=== PATIENT | female | born 1945 | race Caucasian/White ===

== ENCOUNTER → 2017-06-30 | Outpatient (CLI) | payer MEDICARE, OTHER ==
--- NOTE | 2017-07-01 09:57 | ECHOF ---
Referral Reason:I51.7 Cardiomegaly MEASUREMENTS -------- HEIGHT: 157.5 cm WEIGHT: 119.3 kg BP: 222/93 RVIDd: 3.4 cm (< 3.3) IVSd: 1.6 cm (0.6 - 1.1) LVIDd: 4.9 cm (3.9 - 5.3) LVPWd: 1.7 cm (0.6 - 1.1) IVSs: 1.9 cm LVIDs: 3.5 cm LVPWs: 2.1 cm LA Diam: 3.6 cm (2.7 - 3.8) LAESV Index (A-L): 29.64 ml/m Ao Diam: 3.2 cm (2.0 - 3.7) AV Cusp: 1.3 cm (1.5 - 2.6) MV EXCURSION: 14.382 mm (> 18.000) MV EF SLOPE: 41 mm/s (70 - 150) EPSS: 0.4 cm MV E Isauro: 1.01 m/s MV DecT: 337 ms MV A Isauro: 0.90 m/s MV E/A Ratio: 1.12 AV maxP.23 mmHg AV meanP.66 mmHg FINDINGS -------- Sinus rhythm. This was a technically adequate study. The left ventricular size is normal. There is moderate concentric left ventricular hypertrophy. O verall left ventricular systolic function is normal with, an EF between 55 - 60 %. The right ventricle is mildly enlarged. LA is midly dilated 29-33ml/m2. The right atrium is normal in size. There is moderate aortic valve sclerosis. There is mild aortic stenosis present. Peak/mean gradie nt across the Aortic Valve is 26.23mmHg / 14.66mmHg. Mild mitral annular calcification present. The tricuspid valve was not well visualized. The pulmonic valve was not well visualized. The aortic root size is normal. Normal inferior vena cava with normal inspiratory collapse consistent with estimated right atrial pre ssure of 5 mmHg. There is no pericardial effusion. CONCLUSIONS -------- 1. Sinus rhythm. 2. This was a technically adequate study. 3. The left ventricular size is normal. 4. There is moderate concentric left ventricular hypertrophy. 5. Overall left ventricular systolic function is normal with, an EF between 55 - 60 %. 6. The right ventricle is mildly enlarged. 7. LA is midly dilated 29-33ml/m2. 8. There is moderate aortic valve sclerosis. 9. There is mild aortic stenosis present. 10. Peak/mean gradient across the Aortic Valve is 26.23mmHg / 14.66mmHg. 11. Mild mitral annular calcification present. 12. The tricuspid valve was not well visualized. 13. The pulmonic valve was not well visualized. 14. The aortic root size is normal. 15. Normal inferior vena cava with normal inspiratory collapse consistent with estimated right atrial pressure of 5 mmHg. 16. There is no pericardial effusion. SET UP PERSON: Griselda Pena RDCS
== END | disposition home or self-care (01) ==
LOC: RADECHMAIN 08:00
PROVIDERS: ATTEND Family Medicine
DX: I35.0 Nonrheumatic aortic (valve) stenosis (principal); I05.8 Other rheumatic mitral valve diseases
CPT/HCPCS: 93306

== ENCOUNTER 2017-07-02 13:20 | Inpatient (IN) | payer MEDICARE, OTHER ==
[2017-07-02] MEDS ORDERED: ENALAPRILAT 1.25 MG/ML 1 ML VIAL IVP STA (13:46)
--- NOTE | 2017-07-02 13:46 | ED ---
General Adult HPI - General Chief complaint: Recheck/Abnormal Lab/Rx Stated complaint: Blood pressure Time Seen by Provider: 07/02/17 13:31 Source: patient, family, RN notes reviewed Mode of arrival: ambulatory Limitations: no limitations - History of Present Illness Initial comments: Patient is a pleasant 72-year-old female presenting to the emergency department with concerns regarding hypertension. Onset of symptoms was today. Patient has been having mild headache for the past week. Headache is frontal and mild however patient does normally not get headaches. No weakness. No confusion. No chest pain. Patient felt somewhat lightheaded this morning and checked her blood pressure at home. Blood pressure was 220 systolic. Patient is on atenolol for hypertension. Patient is unclear when her last blood pressure was checked however did see her doctor a couple of weeks ago. - Related Data Home Medications Medication Instructions Recorded Confirmed Atenolol [Tenormin] 25 mg PO BID 03/24/14 07/02/17 Atorvastatin Calcium [Lipitor] 40 mg PO HS 03/24/14 07/02/17 Levothyroxine Sodium [Levoxyl] 125 mcg PO DAILY 03/24/14 07/02/17 Multivitamins, Thera [Multivitamin 1 tab PO DAILY 03/24/14 07/02/17 (formulary)] Oxybutynin ER [Ditropan Xl] 10 mg PO HS 07/02/17 07/02/17 Allergies Allergy/AdvReac Type Severity Reaction Status Date / Time meperidine HCl [From Demerol] Allergy Nausea & Verified 07/02/17 14:38 Vomiting Review of Systems ROS Statement: Those systems with pertinent positive or pertinent negative responses have been documented in the HPI. ROS Other: All systems not noted in ROS Statement are negative. Constitutional: Denies: fever Eyes: Denies: eye pain ENT: Denies: ear pain Respiratory: Denies: cough Cardiovascular: Denies: chest pain Endocrine: Denies: fatigue Gastrointestinal: Denies: abdominal pain Genitourinary: Denies: dysuria Musculoskeletal: Denies: back pain Skin: Denies: rash Neurological: Reports: as per HPI. Denies: weakness, confusion Past Medical History Past Medical History: Hyperlipidemia, Hypertension, Thyroid Disorder Additional Past Medical History / Comment(s): varicose veins, History of Any Multi-Drug Resistant Organisms: None Reported Past Surgical History: Cholecystectomy, Hysterectomy, Joint Replacement, Tonsillectomy Additional Past Surgical History / Comment(s): rt knee replacement, TOTAL LEFT KNEE REPLACEMENT. Past Anesthesia/Blood Transfusion Reactions: No Reported Reaction Past Psychological History: No Psychological Hx Reported Smoking Status: Never smoker Past Alcohol Use History: None Reported Past Drug Use History: None Reported - Past Family History Mother Family Medical History: Cancer Sister(s) Family Medical History: Cancer General Exam Limitations: no limitations General appearance: alert, in no apparent distress Head exam: Present: atraumatic Eye exam: Present: normal appearance, PERRL ENT exam: Present: normal oropharynx Neck exam: Present: normal inspection Respiratory exam: Present: normal lung sounds bilaterally Cardiovascular Exam: Present: regular rate, normal rhythm GI/Abdominal exam: Present: soft. Absent: tenderness Extremities exam: Present: normal inspection Neurological exam: Present: alert, CN II-XII intact. Absent: motor sensory deficit Expanded Neurological exam: Present: protecting the airway Speech: Present: fluid speech Cranial nerves: EOM's Intact: Normal, Facial Sensation: Normal Sensory exam: Upper Extremity Light Touch: Normal, Lower Extremity Light Touch: Normal Motor strength exam: RUE: 5, LUE: 5, RLE: 5, LLE: 5 Eye Response: (4) open spontaneously Motor Response: (6) obeys commands Verbal Response: (5) oriented Psychiatric exam: Present: normal affect, normal mood Skin exam: Present: normal color Course Vital Signs 07/02/17 07/02/17 07/02/17 13:22 14:00 14:05 Temperature 97.4 F L Pulse Rate 53 L 49 L 45 L Respiratory 18 18 20 Rate Blood Pressure 248/112 212/95 209/91 O2 Sat by Pulse 94 L 98 96 Oximetry 07/02/17 15:37 Temperature Pulse Rate 41 L Respiratory 18 Rate Blood Pressure 179/84 O2 Sat by Pulse 98 Oximetry EKG Findings - EKG Comments: EKG Findings:: Sinus bradycardia 46. First-degree AV block with a TX of 2:30. QRS 158. QT 526. QTc 460. Normal axis. Right bundle branch block. No acute ST change. Medical Decision Making - Medical Decision Making Patient reevaluated and is resting comfortably in bed. Blood pressure has improved however patient has been bradycardic. Heart rate is currently in the low 40s. Case was discussed in detail with Dr. Jesus who did come evaluate the patient. He will admit for Dr. flores, covering for Dr. rico. He requests no consult at this time. - Lab Data Result diagrams: 07/02/17 13:49 07/02/17 13:49 Lab Results 07/02/17 07/02/17 07/02/17 Range/Units 13:49 13:49 13:49 WBC 7.1 (3.8-10.6) k/uL RBC 4.90 (3.80-5.40) m/uL Hgb 13.9 (11.4-16.0) gm/dL Hct 42.5 (34.0-46.0) % MCV 86.7 (80.0-100.0) fL MCH 28.4 (25.0-35.0) pg MCHC 32.8 (31.0-37.0) g/dL RDW 13.9 (11.5-15.5) % Plt Count 227 (150-450) k/uL Neutrophils % 63 % Lymphocytes % 26 % Monocytes % 6 % Eosinophils % 3 % Basophils % 0 % Neutrophils # 4.4 (1.3-7.7) k/uL Lymphocytes # 1.9 (1.0-4.8) k/uL Monocytes # 0.4 (0-1.0) k/uL Eosinophils # 0.2 (0-0.7) k/uL Basophils # 0.0 (0-0.2) k/uL PT (9.0-12.0) sec INR (<1.2) APTT (22.0-30.0) sec Sodium 142 (137-145) mmol/L Potassium 4.3 (3.5-5.1) mmol/L Chloride 103 (98-107) mmol/L Carbon Dioxide 31 H (22-30) mmol/L Anion Gap 8 mmol/L BUN 16 (7-17) mg/dL Creatinine 0.59 (0.52-1.04) mg/dL Est GFR (CKD-EPI)AfAm >90 (>60 ml/min/1.73 sqM) Est GFR (CKD-EPI)NonAf >90 (>60 ml/min/1.73 sqM) Glucose 113 H (74-99) mg/dL Calcium 9.6 (8.4-10.2) mg/dL Total Bilirubin 0.6 (0.2-1.3) mg/dL AST 50 H (14-36) U/L ALT 67 H (9-52) U/L Alkaline Phosphatase 91 (38-126) U/L Total Creatine Kinase 101 (30-135) U/L CK-MB (CK-2) 1.1 (0.0-2.4) ng/mL CK-MB (CK-2) Rel Index 1.1 Troponin I <0.012 (0.000-0.034) ng/mL Total Protein 7.8 (6.3-8.2) g/dL Albumin 4.0 (3.5-5.0) g/dL 07/02/17 Range/Units 13:49 WBC (3.8-10.6) k/uL RBC (3.80-5.40) m/uL Hgb (11.4-16.0) gm/dL Hct (34.0-46.0) % MCV (80.0-100.0) fL MCH (25.0-35.0) pg MCHC (31.0-37.0) g/dL RDW (11.5-15.5) % Plt Count (150-450) k/uL Neutrophils % % Lymphocytes % % Monocytes % % Eosinophils % % Basophils % % Neutrophils # (1.3-7.7) k/uL Lymphocytes # (1.0-4.8) k/uL Monocytes # (0-1.0) k/uL Eosinophils # (0-0.7) k/uL Basophils # (0-0.2) k/uL PT 10.3 (9.0-12.0) sec INR 1.1 (<1.2) APTT 24.1 (22.0-30.0) sec Sodium (137-145) mmol/L Potassium (3.5-5.1) mmol/L Chloride (98-107) mmol/L Carbon Dioxide (22-30) mmol/L Anion Gap mmol/L BUN (7-17) mg/dL Creatinine (0.52-1.04) mg/dL Est GFR (CKD-EPI)AfAm (>60 ml/min/1.73 sqM) Est GFR (CKD-EPI)NonAf (>60 ml/min/1.73 sqM) Glucose (74-99) mg/dL Calcium (8.4-10.2) mg/dL Total Bilirubin (0.2-1.3) mg/dL AST (14-36) U/L ALT (9-52) U/L Alkaline Phosphatase (38-126) U/L Total Creatine Kinase (30-135) U/L CK-MB (CK-2) (0.0-2.4) ng/mL CK-MB (CK-2) Rel Index Troponin I (0.000-0.034) ng/mL Total Protein (6.3-8.2) g/dL Albumin (3.5-5.0) g/dL - Radiology Data Radiology results: report reviewed (Computed tomography scan of the brain shows no acute intercranial process. Age-related atrophy.), image reviewed (Two-view chest x-ray shows cardiomegaly and mild pulmonary vascular congestion.) Disposition Clinical Impression: Hypertension, Bradycardia Disposition: ADMITTED IP TO THIS HOSP Referrals: Lalito Boswell MD [Primary Care Provider] - 1-2 days Decision Time: 16:31
[2017-07-02 14:01] LABS: Basophils % (A) 0 %; Eosinophils # (A) 0.2 k/uL (0-0.7); Eosinophils % (A) 3 %; HCT 42.5 % (34.0-46.0); HGB 13.9 gm/dL (11.4-16.0); Lymphocytes # (A) 1.9 k/uL (1.0-4.8); Lymphocytes % (A) 26 %; MCH 28.4 pg (25.0-35.0); MCHC 32.8 g/dL (31.0-37.0); MCV 86.7 fL (80.0-100.0); Mean Platelet Volume 6.9; Monocytes # (A) 0.4 k/uL (0-1.0); Monocytes % (A) 6 %; Neutrophils # (A) 4.4 k/uL (1.3-7.7); Neutrophils % (A) 63 %; Platelet Count 227 k/uL (150-450); RDW 13.9 % (11.5-15.5); WBC 7.1 k/uL (3.8-10.6)
[2017-07-02 14:09] LABS: INR 1.1 (<1.2); Partial Thromboplastin Time 24.1 sec (22.0-30.0); Prothrombin Time 10.3 sec (9.0-12.0)
[2017-07-02 14:10] LABS: ALT 67 U/L (9-52); AST 50 U/L (14-36); Alkaline Phosphatase 91 U/L (38-126); Anion Gap 8 mmol/L; Blood Urea Nitrogen 16 mg/dL (7-17); Calcium 9.6 mg/dL (8.4-10.2); Carbon Dioxide 31 mmol/L (22-30); Chloride 103 mmol/L (98-107); Glucose 113 mg/dL (74-99); Potassium 4.3 mmol/L (3.5-5.1); Sodium 142 mmol/L (137-145); Total Bilirubin 0.6 mg/dL (0.2-1.3); Total Protein 7.8 g/dL (6.3-8.2)
[2017-07-02 14:23] LABS: Creatine Kinase 101 U/L (30-135)
--- NOTE | 2017-07-02 14:33 | CT ---
EXAMINATION TYPE: CT brain wo con DATE OF EXAM: 07/02/2017 COMPARISON: NONE HISTORY: Headache and high blood pressure CT DLP: 945.5 mGycm Automated exposure control for dose reduction was used. TECHNIQUE: CT scan of the head is performed without contrast. FINDINGS: There is no acute intracranial hemorrhage or midline shift identified. There is diffuse v entricular and sulcal prominence consistent with diffuse age-related cerebral atrophy. There is ecta bernardo of the basilar artery noted. There are few areas of low-attenuation in the periventricular white matter consistent with chronic small vessel ischemic change. The globes are intact and the visualize d sinuses are clear other than a scant amount of fluid within the sphenoid air cells and probable sma ll subcentimeter right frontal osteoma. IMPRESSION: 1. No acute intracranial process. 2. 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
[2017-07-02 14:36] LABS: Creatine Kinase MB 1.1 ng/mL (0.0-2.4); Troponin I <0.012 ng/mL (0.000-0.034)
--- NOTE | 2017-07-02 14:48 | XR ---
EXAMINATION TYPE: XR chest 2V DATE OF EXAM: 07/02/2017 COMPARISON: NONE HISTORY: Weakness and hypertension TECHNIQUE: Frontal and lateral views of the chest are obtained. FINDINGS: Copious soft tissues obscure the lateral lungs. Overlying lines also partially obscured mid line mediastinum. Heart is enlarged. There is engorgement of the vasculature on the lateral image wit h no focal consolidation. Mild multilevel degenerative changes of the thoracic spine are seen. No siz able pleural effusion or pneumothorax. The osseous structures are intact. IMPRESSION: Cardiomegaly and mild pulmonary vascular congestion that may be on the basis of decompensated congest june heart failure.
[2017-07-02] MEDS ORDERED: amLODIPine 5 MG TAB PO STA (15:50)
--- NOTE | 2017-07-02 15:59 | P.HPIM ---
History of Present Illness 72-year-old pleasant female came in with complaints of elevated blood pressures checked her blood pressure which was elevated patient is comparing of shortness of breath denied any orthopnea PND. Patient denied any cough or shortness of breath is exertional in nature. Patient is found to have some pulmonary decompressive surgery changes that his pulmonary edema on the chest x-ray I'll obtain a BNP, echocardiogram. Patient does have pedal edema as well. Patient was given couple doses of Vasotec after which her blood pressure has come down from 250/120 to 180 systolic. Patient will be admitted under observation has as her blood pressure is already come down patient will need diuretic therapy since her the chest x-ray showing pulmonary edema and patient does have bilateral pedal edema we will give her a dose of Lasix patient will be started on hydrochlorothiazide from tomorrow patient will be given a dose of amlodipine today and will be started on regular dose of amlodipine from tomorrow. Patient was comparing of some headache. Denied any bloody vision denied any chest pain denied any abdominal pain. Patient denied any fever chills nausea vomiting. Patient takes atenolol patient has a sinus bradycardia at this time because of which atenolol will be discontinued. Review of Systems REVIEW OF SYSTEMS: CONSTITUTIONAL: No fever, no malaise, no fatigue. HEENT: No recent visual problems or hearing problems. Denied any sore throat. CARDIOVASCULAR: No chest pain, orthopnea, PND, no palpitations, no syncope. PULMONARY: no cough, no hemoptysis. GASTROINTESTINAL: No diarrhea, no nausea, no vomiting, no abdominal pain. Normoactive bowel sounds. NEUROLOGICAL: , no weakness, no numbness. HEMATOLOGICAL: Denies any bleeding or petechiae. GENITOURINARY: Denies any burning micturition, frequency, or urgency. MUSCULOSKELETAL/RHEUMATOLOGICAL: Denies any joint pain, swelling, or any muscle pain. ENDOCRINE: Denies any polyuria or polydipsia. The rest of the 14-point review of systems is negative. Past Medical History Past Medical History: Hyperlipidemia, Hypertension, Thyroid Disorder Additional Past Medical History / Comment(s): varicose veins, History of Any Multi-Drug Resistant Organisms: None Reported Past Surgical History: Cholecystectomy, Hysterectomy, Joint Replacement, Tonsillectomy Additional Past Surgical History / Comment(s): rt knee replacement, TOTAL LEFT KNEE REPLACEMENT. Past Anesthesia/Blood Transfusion Reactions: No Reported Reaction Past Psychological History: No Psychological Hx Reported Smoking Status: Never smoker Past Alcohol Use History: None Reported Past Drug Use History: None Reported - Past Family History Mother Family Medical History: Cancer Sister(s) Family Medical History: Cancer Medications and Allergies Home Medications Medication Instructions Recorded Confirmed Type Atenolol [Tenormin] 25 mg PO BID 03/24/14 07/02/17 History Atorvastatin Calcium [Lipitor] 40 mg PO HS 03/24/14 07/02/17 History Levothyroxine Sodium [Levoxyl] 125 mcg PO DAILY 03/24/14 07/02/17 History Multivitamins, Thera [Multivitamin 1 tab PO DAILY 03/24/14 07/02/17 History (formulary)] Oxybutynin ER [Ditropan Xl] 10 mg PO HS 07/02/17 07/02/17 History Allergies Allergy/AdvReac Type Severity Reaction Status Date / Time meperidine HCl [From Demerol] Allergy Nausea & Verified 07/02/17 14:38 Vomiting Physical Exam Vitals: Vital Signs Temp Pulse Resp BP Pulse Ox 07/02/17 15:37 41 L 18 179/84 98 07/02/17 14:05 45 L 20 209/91 96 07/02/17 14:00 49 L 18 212/95 98 07/02/17 13:22 97.4 F L 53 L 18 248/112 94 L Intake and Output 07/02/17 07/02/17 07/02/17 06:59 14:59 22:59 Other: Weight 111.584 kg PHYSICAL EXAMINATION: GENERAL: The patient is alert and oriented x3, not in any acute distress. Well developed, well nourished. Obese HEENT: Pupils are round and equally reacting to light. EOMI. No scleral icterus. No conjunctival pallor. Normocephalic, atraumatic. No pharyngeal erythema. No thyromegaly. CARDIOVASCULAR: S1 and S2 present. No murmurs, rubs, or gallops. No JVD bradycardic PULMONARY: Chest is clear to auscultation, no wheezing or crackles. ABDOMEN: Soft, nontender, nondistended, normoactive bowel sounds. No palpable organomegaly. MUSCULOSKELETAL: No joint swelling or deformity. EXTREMITIES: No cyanosis, clubbing, she does have bilateral pedal edema NEUROLOGICAL: Gross neurological examination did not reveal any focal deficits. SKIN: No rashes. Results CBC & Chem 7: 07/02/17 13:49 07/02/17 13:49 Labs: Abnormal Lab Results - Last 24 Hours (Table) 07/02/17 Range/Units 13:49 Carbon Dioxide 31 H (22-30) mmol/L Glucose 113 H (74-99) mg/dL AST 50 H (14-36) U/L ALT 67 H (9-52) U/L Assessment and Plan Plan: -Accelerated hypertension, possibility of hypertensive emergency on arrival to ER with shortness of breath and flash pulmonary edema: Improved blood pressure now patient will be admitted observation will not require any IV antibiotics as at this time further management of her hypertension as mentioned above. -Pulmonary edema along with bilateral pedal edema may be related to flash pulmonary edema from hypertensive urgency but a lot congestive heart failure systolic heart diastolic dysfunction not obtain an echocardiogram will be given a dose of Lasix, BNP will be obtained. -Obesity: Counseling was provided dietary counseling for her high blood pressure was provided as well -Sinus bradycardia secondary to atenolol which was discontinued -Hyperlipidemia -Hyper thyroidism will obtain TSH level as well
[2017-07-02] MEDS ORDERED: FUROSEMIDE 10 MG/ML 2 ML VIAL IV ONE (16:00)
[2017-07-02] MEDS ORDERED: NALOXONE 0.4 MG/ML 1 ML VIAL IV PRN (16:32)
[2017-07-02 16:51] LABS: Appearance,Urine Clear (Clear); Bilirubin,Urine Negative (Negative); Blood,Urine Negative (Negative); Color,Urine Light Yellow; Glucose,Urine (UA) Negative (Negative); Ketones,Urine Negative (Negative); Leukocyte Esterase,Urine Negative (Negative); Nitrite,Urine Negative (Negative); Protein,Urine Negative (Negative); Specific Gravity,Urine 1.007 (1.001-1.035); Urobilinogen,Urine <2.0 mg/dL (<2.0)
[2017-07-02 21:20] VITALS: RESP 18; BMI 47.2
[2017-07-02] MEDS: ATORVASTATIN 40 MG TAB PO SCH (23:29)
[2017-07-02] MEDS: OXYBUTYNIN 10 MG TAB.ER.24 PO SCH (23:29)
[2017-07-03] MEDS: LEVOTHYROXINE 125 MCG TAB PO SCH (05:33)
[2017-07-03 06:47] LABS: Anion Gap 7 mmol/L; Blood Urea Nitrogen 16 mg/dL (7-17); Calcium 9.3 mg/dL (8.4-10.2); Carbon Dioxide 32 mmol/L (22-30); Chloride 102 mmol/L (98-107); Glucose 97 mg/dL (74-99); Potassium 3.8 mmol/L (3.5-5.1); Sodium 141 mmol/L (137-145)
[2017-07-03] MEDS: amLODIPine 5 MG TAB PO SCH (08:13)
[2017-07-03] MEDS: FUROSEMIDE 10 MG/ML 4 ML VIAL IV SCH ×2 (13:03→21:26)
--- NOTE | 2017-07-03 13:39 | P.PN ---
Subjective 72-year-old female patient was admitted secondary to flash pulmonary edema from hypertensive emergency blood pressures well controlled. Patient will be started on 40 IV twice a day of Lasix patient had a recent echocardiogram which showed normal ejection fraction but did have concentrated hypertrophy. Patient shortness of breath improved but still bit short of breath possibly of discharge tomorrow, repeat x-ray chest tomorrow. Constitutional: Denied any fatigue denied any fever. Cardio vascular: denied any chest pain, palpitations Gastrointestinal denied any nausea vomiting Pulmonary: Significantly improved shortness of breath and pedal edema Neurologic denied any new focal deficits Objective - Vital Signs Vital signs: Vital Signs Temp 99.1 F 07/03/17 12:00 Pulse 54 L 07/03/17 12:00 Resp 18 07/03/17 12:00 BP 149/77 07/03/17 12:00 Pulse Ox 93 L 07/03/17 12:00 Intake & Output 07/02/17 07/03/17 07/03/17 18:59 06:59 18:59 Intake Total 200 240 Balance 200 240 Weight 111.584 kg 116 kg Intake: Oral 200 240 Other: Voiding Method Toilet Toilet # Voids 1 - Exam PHYSICAL EXAMINATION: GENERAL: The patient is alert and oriented x3, not in any acute distress. Well developed, well nourished. Obese HEENT: Pupils are round and equally reacting to light. EOMI. No scleral icterus. No conjunctival pallor. Normocephalic, atraumatic. No pharyngeal erythema. No thyromegaly. CARDIOVASCULAR: S1 and S2 present. No murmurs, rubs, or gallops. No JVD bradycardic PULMONARY: Chest is clear to auscultation, no wheezing or crackles. ABDOMEN: Soft, nontender, nondistended, normoactive bowel sounds. No palpable organomegaly. MUSCULOSKELETAL: No joint swelling or deformity. EXTREMITIES: No cyanosis, clubbing, she does have bilateral pedal edema improved compared to yesterday NEUROLOGICAL: Gross neurological examination did not reveal any focal deficits. SKIN: No rashes. - Labs CBC & Chem 7: 07/02/17 13:49 07/03/17 06:02 Labs: Abnormal Lab Results - Last 24 Hours (Table) 07/02/17 07/03/17 Range/Units 13:49 06:02 Carbon Dioxide 31 H 32 H (22-30) mmol/L Glucose 113 H (74-99) mg/dL AST 50 H (14-36) U/L ALT 67 H (9-52) U/L Assessment and Plan Plan: -Accelerated hypertension, possibility of hypertensive emergency on arrival to ER with shortness of breath and flash pulmonary edema: Improved blood pressure now patient's is pretty status improved but still which are of breath will continue on IV Lasix today and possibility of discharge tomorrow patient had normal ejection fraction but concentrated hypertrophy on the echocardiogram that was done on 16 of this month -Pulmonary edema along with bilateral pedal edema may be related to flash pulmonary edema from hypertensive urgency. -Obesity: Counseling was provided dietary counseling for her high blood pressure was provided as well -Sinus bradycardia secondary to atenolol which was discontinued, bradycardia resolved -Hyperlipidemia -Hypothyroidism: TSH within normal limits
--- NOTE | 2017-07-03 17:01 | US ---
EXAMINATION TYPE: US venous doppler duplex LE LT DATE OF EXAM: 07/03/2017 2:55 PM COMPARISON: 04/14/2014 CLINICAL HISTORY: left leg/calf pain. Difficult/limited exam due to patient body habitus SIDE PERFORMED: Left TECHNIQUE: The lower extremity deep venous system is examined utilizing real time linear array sonog fawad with graded compression, doppler sonography and color-flow sonography. VESSELS IMAGED: External Iliac Vein (EIV) Common Femoral Vein Deep Femoral Vein Greater Saphenous Vein * Femoral Vein Popliteal Vein Small Saphenous Vein * Proximal Calf Veins (* superficial vessels) FINDINGS: Grayscale, color doppler, spectral doppler imaging performed of the deep veins of the lower extremities. There is normal flow, compressibility, vascular waveforms. IMPRESSION: LEFT LOWER EXTREMITY: NEGATIVE FOR DEEP VENOUS THROMBOSIS.
[2017-07-03] MEDS: ATORVASTATIN 40 MG TAB PO SCH (19:57)
[2017-07-03] MEDS: OXYBUTYNIN 10 MG TAB.ER.24 PO SCH (19:57)
[2017-07-04 05:56] LABS: Basophils % (A) 1 %; Eosinophils # (A) 0.2 k/uL (0-0.7); Eosinophils % (A) 3 %; HCT 43.2 % (34.0-46.0); HGB 14.7 gm/dL (11.4-16.0); Lymphocytes # (A) 2.6 k/uL (1.0-4.8); Lymphocytes % (A) 36 %; MCH 29.2 pg (25.0-35.0); MCHC 33.9 g/dL (31.0-37.0); Mean Platelet Volume 6.7; Monocytes # (A) 0.5 k/uL (0-1.0); Monocytes % (A) 7 %; Neutrophils # (A) 3.8 k/uL (1.3-7.7); Neutrophils % (A) 52 %; Platelet Count 200 k/uL (150-450); RBC 5.03 m/uL (3.80-5.40); RDW 14.1 % (11.5-15.5); WBC 7.3 k/uL (3.8-10.6)
[2017-07-04] MEDS: LEVOTHYROXINE 125 MCG TAB PO SCH (06:06)
[2017-07-04 06:10] LABS: Calcium 9.3 mg/dL (8.4-10.2); Potassium 3.9 mmol/L (3.5-5.1)
--- NOTE | 2017-07-04 08:15 | XR ---
EXAMINATION TYPE: XR chest 1V portable DATE OF EXAM: 07/04/2017 CLINICAL HISTORY: Difficulty breathing and pulmonary edema progress study. TECHNIQUE: Single AP portable frontal view of the chest is obtained. COMPARISON: Chest x-ray from 2 days earlier. FINDINGS: Exam is suboptimal due to patient's large body habitus and portable technique. There is car diomegaly redemonstrated. There is perhaps stable mild central vascular congestion. No new focal airs pace opacity, pleural effusion, or pneumothorax is seen. High riding humeral heads bilaterally sugges t chronic rotator cuff tears. IMPRESSION: Overall stable findings, cardiomegaly with perhaps mild central vascular congestion. Co rrelate clinically. No new focal infiltrate is present.
[2017-07-04] MEDS: FUROSEMIDE 10 MG/ML 4 ML VIAL IV SCH (09:26)
[2017-07-04] MEDS: amLODIPine 5 MG TAB PO SCH (09:26)
--- NOTE | 2017-07-04 11:43 | CDI ---
Last Revision, March 2017 Documentation Clarification Form Date: July 04, 2017 From: Chela Akins RN Admit Date: 07/02/2017 4:32:00 PM Patient Name: Arabella Beard Visit Number: [id number] ATTENTION: The Clinical Documentation Specialists (CDI) and [facility] Coding Staff appreciate your assistance in clarifying documentation. Please respond to the clarification below the line at the bottom and electronically sign. The CDI & [facility] Coding staff will review the response and follow-up if needed. Please note: Queries are made part of the Legal Health Record. If you have any questions, please contact the author of this message via ITS. Dr. Vinod Montesinos, CHF systolic/diastolic dysfunction is charted in the H&P: History/Risk Factors:. hyperlipidemia, htn, thyroid disorder Clinical Indicators: BNP: 279 Chest X Ray: decompensated chf Treatment: IV Lasix Monitor labs Healthy Heart Diet In your professional opinion, can you please clarify the acuity of CHF if known? Acute Chronic Acute on Chronic Heart Failure Unable to Determine Other, please specify Please continue to document in your progress notes under the line below and/or in the discharge summary in order to capture severity of illness and risk of mortality. Include clinical findings that support your diagnosis. Please refer to my discharge summary MTDD
--- NOTE | 2017-07-04 13:14 | P.DS ---
Providers Date of admission: 07/02/17 16:32 Attending physician: Vinod Montesinos Primary care physician: Lalito Boswell [facility] Course: 72-year-old female patient was admitted secondary to flash pulmonary edema from hypertensive emergency blood pressures well controlled. Patient will be started on 40 IV twice a day of Lasix patient had a recent echocardiogram which showed normal ejection fraction but did have concentrated hypertrophy. Patient shortness of breath improved but still bit short of breath possibly of discharge tomorrow, repeat x-ray chest tomorrow. 07/04/2017 Patient respiratory status improved patient's shortness of breath completely resolved patient may have chronic diastolic dysfunction with acute exacerbation along with the hypertensive emergency. Patient will be discharged on 40 mg of oral Lasix along with potassium chloride 10 meq and amlodipine. Repeat basic metabolic profile in 3 days Constitutional: Denied any fatigue denied any fever. Cardio vascular: denied any chest pain, palpitations Gastrointestinal denied any nausea vomiting Pulmonary: Denied any shortness of breath cough Neurologic denied any new focal deficits -Accelerated hypertension, possibility of hypertensive emergency on arrival to ER with shortness of breath and flash pulmonary edema: Improved blood pressure -Pulmonary edema along with bilateral pedal edema may be related to flash pulmonary edema from hypertensive urgency. I cannot completely rule out a diastolic dysfunction chronic with acute exacerbation. -Obesity: Counseling was provided dietary counseling for her high blood pressure was provided as well -Sinus bradycardia secondary to atenolol which was discontinued, bradycardia resolved -Hyperlipidemia -Hypothyroidism: TSH within normal limits Plan - Discharge Summary Discharge Rx Participant: Yes New Discharge Prescriptions: New amLODIPine [Norvasc] 5 mg PO DAILY #30 tab Furosemide [Lasix] 40 mg PO DAILY #30 tablet Continue Levothyroxine Sodium [Levoxyl] 125 mcg PO DAILY Atorvastatin Calcium [Lipitor] 40 mg PO HS Multivitamins, Thera [Multivitamin (formulary)] 1 tab PO DAILY Oxybutynin ER [Ditropan Xl] 10 mg PO HS Discontinued Atenolol [Tenormin] 25 mg PO BID Discharge Medication List Atorvastatin Calcium [Lipitor] 40 mg PO HS 03/24/14 [History] Levothyroxine Sodium [Levoxyl] 125 mcg PO DAILY 03/24/14 [History] Multivitamins, Thera [Multivitamin (formulary)] 1 tab PO DAILY 03/24/14 [History ] Oxybutynin ER [Ditropan Xl] 10 mg PO HS 07/02/17 [History] Furosemide [Lasix] 40 mg PO DAILY #30 tablet 07/04/17 [Rx] amLODIPine [Norvasc] 5 mg PO DAILY #30 tab 07/04/17 [Rx] Follow up Appointment(s)/Referral(s): Lalito Boswell MD [Primary Care Provider] - 3 Days ( with PA) Ambulatory/Diagnostic Orders: Basic Metabolic Panel [LAB.AMB] Location: Determined By Patient Patient Instructions/Handouts: Bradycardia (DC) Discharge Disposition: HOME SELF-CARE
[2017-07-04 13:35] VITALS: BP 132/76; PULSE 65; TEMP 98.4
== END 2017-07-04 14:00 | disposition home or self-care (01) | DRG 304 ==
LOC: EC 13:20 → 6SEL 16:32
PROVIDERS: ADMIT Hospitalist; ATTEND Hospitalist
DX: I16.1 Hypertensive emergency (principal); I50.33 Acute on chronic diastolic (congestive) heart failure; Z68.42 Body mass index [BMI] 45.0-49.9, adult; E66.9 Obesity, unspecified; E78.5 Hyperlipidemia, unspecified; I11.0 Hypertensive heart disease with heart failure; Z90.710 Acquired absence of both cervix and uterus; Z96.653 Presence of artificial knee joint, bilateral; Z71.3 Dietary counseling and surveillance; R00.1 Bradycardia, unspecified; T44.7X5A Adverse effect of beta-adrenoreceptor antagonists, initial encounter; Z79.890 Hormone replacement therapy; Z79.899 Other long term (current) drug therapy; E03.9 Hypothyroidism, unspecified
CPT/HCPCS: 36415; 70450; 71045; 71046; 80048; 80053; 81003; 82550; 82553; 83880; 84443; 84484; 85025; 85610; 85730; 93005; 93306; 96374; 96375; 99285

== ENCOUNTER → 2017-12-13 | Outpatient (CLI) | payer MEDICARE, OTHER ==
--- NOTE | 2017-12-14 08:54 | MM ---
Reason for exam: screening (asymptomatic). Last mammogram was performed 7 years and 10 months ago. Physical Findings: A clinical breast exam by your physician is recommended on an annual basis and results should be correlated with mammographic findings. MG 3D Screening Mammo W/Cad Bilateral CC and MLO view(s) were taken. Prior study comparison: February 09, 2010, mammogram, performed at [facility]. February 06, 2008, mammogram, performed at [facility]. There are scattered fibroglandular densities. Stable benign calcifications. There is no discrete abnormality. No significant changes when compared with prior studies. ASSESSMENT: Benign, BI-RAD 2 RECOMMENDATION: Routine screening mammogram of both breasts in 1 year.
== END | disposition home or self-care (01) ==
LOC: RADMAMWWP 11:15
PROVIDERS: ATTEND Family Medicine
DX: Z12.31 Encounter for screening mammogram for malignant neoplasm of breast (principal)
CPT/HCPCS: 77063; 77067

== ENCOUNTER → 2018-06-13 | Outpatient (CLI) | payer MEDICARE, OTHER ==
[2018-06-13 11:24] LABS: HCT 43.2 % (34.0-46.0); HGB 13.9 gm/dL (11.4-16.0); MCH 28.5 pg (25.0-35.0); MCHC 32.3 g/dL (31.0-37.0); MCV 88.4 fL (80.0-100.0); Mean Platelet Volume 6.2; Platelet Count 231 k/uL (150-450); RBC 4.89 m/uL (3.80-5.40); RDW 13.5 % (11.5-15.5); WBC 7.1 k/uL (3.8-10.6)
[2018-06-13 11:31] LABS: Anion Gap 7 mmol/L; Blood Urea Nitrogen 17 mg/dL (7-17); Carbon Dioxide 30 mmol/L (22-30); Chloride 107 mmol/L (98-107); Glucose 93 mg/dL (74-99); Potassium 4.2 mmol/L (3.5-5.1); Sodium 144 mmol/L (137-145)
== END ==
LOC: LABPAT 10:04
PROVIDERS: ATTEND Internal Medicine Cardiovascular Disease
DX: Z01.812 Encounter for preprocedural laboratory examination (principal); I35.0 Nonrheumatic aortic (valve) stenosis; E78.00 Pure hypercholesterolemia, unspecified
CPT/HCPCS: 36415; 80051; 82565; 82947; 84520; 85027

== ENCOUNTER 2018-06-18 07:32 | Day surgery (SDC) | payer MEDICARE, OTHER ==
[2018-06-13 14:19] VITALS: BMI 47.7
[~2018-06-18 07:32] MED LIST: ALPRAZolam 0.25 MG TAB PO PRN; ALPRAZolam 0.5 MG TAB PO PRN; ASPIRIN 325 MG TAB PO STA; ATORVASTATIN 80 MG TAB PO STA; NITROGLYCERIN SL TABS 0.4 MG TAB SUBLINGUAL PRN; SODIUM CHLORIDE 0.9% 1,000 ML in EMPTY BAG 1 BAG IV ONE
[2018-06-18 08:07] VITALS: TEMP 97.8
[2018-06-18] MEDS ORDERED: LIDOCAINE 1% INJ 10MG/ML (20 ML MDV) ONE (08:24)
[2018-06-18] MEDS ORDERED: fentaNYL (PF) 50 MCG/ML 2 ML AMP ONE (08:51)
[2018-06-18] MEDS ORDERED: MIDAZOLAM 2 MG/2 ML VIAL IVP ONE (08:55)
[2018-06-18] MEDS ORDERED: fentaNYL (PF) 50 MCG/ML 2 ML AMP IVP ONE (08:55)
[2018-06-18] MEDS ORDERED: LIDOCAINE 1% INJ 10MG/ML (20 ML MDV) SQ ONE (09:00)
[2018-06-18] MEDS ORDERED: IOPAMIDOL-370 150ML BTL INJ ONE ×2 (09:25)
[2018-06-18] MEDS ORDERED: RX INFO: IV CONTRAST WAS GIVEN 1 EACH MISC MISCELLANE PRN (09:35)
[2018-06-18] MEDS ORDERED: HYDROcodone/APAP 5-325MG 1 EACH TAB PO PRN (09:35)
--- NOTE | 2018-06-18 09:42 | P.CARDCATH ---
Date of Procedure: 06/18/18 Preoperative Diagnosis: Positive stress test and mild aortic stenosis. Hypertension, hyperlipidemia and family history of ischemic heart disease Postoperative Diagnosis: Normal coronary arteries and mild aortic stenosis Description of Procedure: HISTORY: This is a 73-year-old female with history of hypertension hyperlipidemia and mild aortic stenosis and also family history of ischemic heart disease who had a stress test which was suggestive of possible ischemia in the anteroapical and lateral wall. Patient is advised to have a cardiac catheterization for definitive diagnosis. CONSENT:I have discussed the risks, benefits and alternative therapies for the above-mentioned procedure and for both sedation/analgesia as well as necessary blood product administration, if indicated, as they pertain to this patient. The patient has indicated understanding and acceptance of the risks and procedures discussed. PROCEDURE: Patient was brought to the lab in a fasting state. Patient was given some IV sedation. The right groin is infiltrated with lidocaine and right femoral artery was entered using Seldinger technique. A 6-Welsh catheter was left in place and selective coronary arteriography was performed. Marcus catheters were used for right and left coronary angiogram. Multipurpose catheter with Glidewire was used to cross the aortic valve. Patient tolerated the procedure well. Femoral angiogram was performed and manual compression was applied for hemostasis. No immediate complications were noted and patient was transferred to [facility] in a stable condition Conscious Sedation: Versed 1mg Fentanyl 50 g Duration 31minutes HEMODYNAMICS: The aortic pressure was 140/70. Left ventricle end-diastolic pressure was about 12. The gradient across the aortic valve is about 10-15. SELECTIVE CORONARY ARTERIOGRAPHY: LEFT MAIN: Very short and divides into left anterior descending and circumflex coronary artery immediately. There appears to be almost separate origin of the LAD and circumflex THE LEFT ANTERIOR DESCENDING CORONARY ARTERY:. This is a good caliber vessel giving rise to 2 diagonal and several septal branches. The LAD and branches are free of any occlusive disease THE LEFT CIRCUMFLEX AND IS CORONARY ARTERY:. This is a good caliber vessel giving rise good-sized OM branch and dominant in nature. Free of any occlusive disease THE RIGHT CORONARY ARTERY:. Nondominant and free of any occlusive disease LEFT VENTRICULOGRAPHY:. Not performed FINAL IMPRESSION:, Normal coronary arteries. Mild aortic stenosis PLAN: Continued medical therapy and risk factor modification PROGNOSIS: Fair
[2018-06-18] MEDS ORDERED: SODIUM CHLORIDE 0.9% 1,000 ML IV SCH (09:45)
[2018-06-18 15:55] VITALS: BP 175/86; PULSE 60; RESP 16
== END 2018-06-18 16:03 | disposition home or self-care (01) ==
LOC: CATHCVL 07:32
PROVIDERS: ATTEND Internal Medicine Cardiovascular Disease
DX: I35.0 Nonrheumatic aortic (valve) stenosis (principal); R94.39 Abnormal result of other cardiovascular function study; R42 Dizziness and giddiness; I10 Essential (primary) hypertension; E78.00 Pure hypercholesterolemia, unspecified; Z82.49 Family history of ischemic heart disease and other diseases of the circulatory system; E78.5 Hyperlipidemia, unspecified; Z88.3 Allergy status to other anti-infective agents; Z88.8 Allergy status to other drugs, medicaments and biological substances; Z79.899 Other long term (current) drug therapy
CPT/HCPCS: 93458; C1769 ×2; C1894; J2250; J2001; J3010; Q9967

== ENCOUNTER → 2018-12-24 | Outpatient (CLI) | payer MEDICARE, OTHER ==
--- NOTE | 2018-12-25 08:24 | MM ---
Reason for exam: screening (asymptomatic). Last mammogram was performed 1 year ago. Physical Findings: A clinical breast exam by your physician is recommended on an annual basis and results should be correlated with mammographic findings. MG 3D Screening Mammo W/Cad Bilateral CC and MLO view(s) were taken. Prior study comparison: December 13, 2017, bilateral MG 3d screening mammo w/cad. February 09, 2010, mammogram, performed at [facility]. There are scattered fibroglandular densities. There are benign appearing regional round calcifications in the right breast. There is no discrete abnormality. ASSESSMENT: Benign, BI-RAD 2 RECOMMENDATION: Routine screening mammogram of both breasts in 1 year.
== END | disposition home or self-care (01) ==
LOC: RADMAMWWP 09:26
PROVIDERS: ATTEND Family Medicine
DX: Z12.31 Encounter for screening mammogram for malignant neoplasm of breast (principal)
CPT/HCPCS: 77063; 77067

== ENCOUNTER → 2020-03-13 | Outpatient (CLI) | payer MEDICARE, OTHER ==
--- NOTE | 2020-03-17 11:49 | MM ---
Reason for exam: screening (asymptomatic). Last mammogram was performed 1 year and 3 months ago. Physical Findings: A clinical breast exam by your physician is recommended on an annual basis and results should be correlated with mammographic findings. MG 3D Screening Mammo W/Cad Bilateral CC and MLO view(s) were taken. Prior study comparison: December 24, 2018, bilateral MG 3d screening mammo w/cad. December 13, 2017, bilateral MG 3d screening mammo w/cad. There are scattered fibroglandular densities. No significant changes when compared with prior studies. ASSESSMENT: Benign, BI-RAD 2 RECOMMENDATION: Routine screening mammogram of both breasts in 1 year.
== END | disposition home or self-care (01) ==
LOC: RADMAMWWP 13:09
PROVIDERS: ATTEND Family Medicine
DX: Z12.31 Encounter for screening mammogram for malignant neoplasm of breast (principal)
CPT/HCPCS: 77063; 77067

== ENCOUNTER 2020-09-28 06:53 | Day surgery (SDC) | payer MEDICARE, OTHER ==
[2020-09-24 10:04] VITALS: BMI 45.7
[2020-09-28] MEDS ORDERED: SODIUM CHLORIDE 0.9% 500 ML 500 ML IV ONE (07:15)
[2020-09-28 07:31] VITALS: RESP 16; TEMP 98.3
[2020-09-28] MEDS ORDERED: fentaNYL (PF) 50 MCG/ML 2 ML AMP ONE (08:12)
[2020-09-28] MEDS: BENZOCAINE SPRAY 1 CAN TOPICAL ONE ×2 (08:32→08:37)
[2020-09-28] MEDS ORDERED: MIDAZOLAM 2 MG/2 ML VIAL IV ONE ×2 (08:40→08:43)
[2020-09-28] MEDS ORDERED: fentaNYL (PF) 50 MCG/ML 2 ML AMP IV ONE (08:41)
[2020-09-28 09:49] VITALS: BP 144/70; PULSE 55
--- NOTE | 2020-09-29 10:53 | P.TEE ---
Indications for Procedure(s): Assessment of aortic stenosis Date of Procedure: 09/28/20 Preoperative Diagnosis: Moderate to severe aortic stenosis Postoperative Diagnosis: Moderate to severe aortic stenosis Procedure(s) Performed: BRENDAN Description of Procedure(s): INDICATION: Assessment of aortic stenosis CONSENT: . Informed verbal consent is obtained from the patient PROCEDURE: Patient was brought to the lab in a fasting state. Patient was prepped and draped in the usual fashion. Patient was given Hurricaine spray. She was given IV Versed, a total of 3 mg and also fentanyl 50 g in boluses for sedation. A lubricated Omni probe was advanced into the oropharynx and esophagus. Multiple views were obtained both from esophagus and stomach. Patient tolerated the procedure well. No immediate complications. Color, p ulsed, continuous-wave Doppler studies were done. Saline contrast bubble injections also performed FINDINGS: The aortic valve is tricuspid and calcified with limited opening excursion. By planimetry valve area of about 0.8-1 cm was obtained. It did gradient of about 62-64 with a mean of about 32 was obtained. This is sized of close to severe aortic stenosis. There is a trace aortic regurgitation. Mitral valve appeared to be normal and tricuspid valve appeared to be normal. Left atrial appendage is free of any clot. The interatrial septum is intact without any spontaneous shunt. Saline contrast bubble injection did not reveal any crossing of the bubbles. LV function appeared be preserved. There is a concentric left ventricle hypertrophy. Left atrium appear to be enlarged. Aor ta seemed to be free of any significant plaque IMPRESSION: 1. Severe aortic stenosis. #2. Trace aortic regurgitation #3. No PFO #4. No left atrial appendage clot. 5. Preserved LV function. #6. Concentric left ventricle hypertrophy. #7. No significant plaque in the aorta PLAN: Continue medical therapy. Consider possible aortic valve replacement. Patient may need a cardiac cath for further evaluation
== END 2020-09-28 09:50 | disposition home or self-care (01) ==
LOC: CATHCVL 06:53
PROVIDERS: ATTEND Internal Medicine Cardiovascular Disease
DX: I35.0 Nonrheumatic aortic (valve) stenosis (principal); I10 Essential (primary) hypertension; E78.5 Hyperlipidemia, unspecified; Z82.49 Family history of ischemic heart disease and other diseases of the circulatory system; Z88.1 Allergy status to other antibiotic agents; Z88.5 Allergy status to narcotic agent; R00.0 Tachycardia, unspecified; R42 Dizziness and giddiness; Z79.899 Other long term (current) drug therapy; Z20.822 Contact with and (suspected) exposure to COVID-19
CPT/HCPCS: 93312; 93320; 93325; 87635; J2250; J3010

== ENCOUNTER → 2021-04-22 | Outpatient (CLI) | payer MEDICARE, OTHER ==
--- NOTE | 2021-04-26 09:33 | MM ---
Reason for exam: screening (asymptomatic). Last mammogram was performed 1 year and 1 month ago. Physical Findings: A clinical breast exam by your physician is recommended on an annual basis and results should be correlated with mammographic findings. MG 3D Screening Mammo W/Cad Bilateral CC and MLO view(s) were taken. XCCL view(s) were taken of the right breast. Prior study comparison: March 13, 2020, bilateral MG 3d screening mammo w/cad. December 24, 2018, bilateral MG 3d screening mammo w/cad. There are scattered fibroglandular densities. Benign round calcifications right breast. No significant changes when compared with prior studies. ASSESSMENT: Benign, BI-RAD 2 RECOMMENDATION: Routine screening mammogram of both breasts in 1 year.
== END | disposition home or self-care (01) ==
LOC: RADMAMWWP 09:16
PROVIDERS: ATTEND Family Medicine
DX: Z12.31 Encounter for screening mammogram for malignant neoplasm of breast (principal)
CPT/HCPCS: 77063; 77067

== ENCOUNTER → 2022-04-25 | Outpatient (CLI) | payer MEDICARE ==
--- NOTE | 2022-04-26 18:46 | MM ---
Reason for Exam: Screening (asymptomatic). Last screening mammogram was performed 12 month(s) ago. Patient History: Menarche at age 15. First Full-Term at age 22. Left ovary removed at age 47. Hysterectomy at age 47. Postmenopausal. Risk Values: Kassie 5 year model risk: 1.6%. NCI Lifetime model risk: 3.4%. Prior Study Comparison: 12/24/2018 Bilateral Screening Mammogram, [facility]. 03/13/2020 Bilateral Screening Mammogram, [facility]. 04/22/2021 Bilateral Screening Mammogram, [facility]. Tissue Density: There are scattered fibroglandular densities. Findings: Analyzed By CAD. Scattered benign oil cyst calcifications are noted. There is no suspicious group of microcalcifications or new suspicious mass in either breast. Overall Assessment: Benign, BI-RAD 2 Management: Screening Mammogram of both breasts in 1 year. 1. Patient should continue monthly self breast exams. 2. A clinical breast exam by your physician is recommended on an annual basis. 3. This exam should not preclude additional follow-up of suspicious palpable abnormalities. Electronically signed and approved by: Marie Ibrahim M.D. Radiologist
== END | disposition home or self-care (01) ==
LOC: RADMAMWWP 14:12
PROVIDERS: ATTEND Family Medicine
DX: Z12.31 Encounter for screening mammogram for malignant neoplasm of breast (principal); Z78.0 Asymptomatic menopausal state
CPT/HCPCS: 77063; 77067

== ENCOUNTER → 2023-05-10 | Outpatient (CLI) | payer MEDICARE ==
--- NOTE | 2023-05-10 20:52 | MM ---
Reason for Exam: Screening (asymptomatic). Last screening mammogram was performed 12 month(s) ago. Patient History: Menarche at age 15. First Full-Term at age 22. Left ovary removed at age 47. Hysterectomy at age 47. Postmenopausal. Risk Values: Kassie 5 year model risk: 1.6%. NCI Lifetime model risk: 3.2%. Prior Study Comparison: 03/13/2020 Bilateral Screening Mammogram, [facility]. 04/22/2021 Bilateral Screening Mammogram, [facility]. 04/25/2022 Bilateral MG 3D screening mammo w/cad, [facility]. Tissue Density: There are scattered fibroglandular densities. Findings: Analyzed By CAD. Unchanged bilateral asymmetric densities and benign oil cyst calcifications. There is no suspicious group of microcalcifications or new suspicious mass in either breast. Overall Assessment: Benign, BI-RAD 2 Management: Screening Mammogram of both breasts in 1 year. . Patient should continue monthly self-breast exams. A clinical breast exam by your physician is recommended on an annual basis. This exam should not preclude additional follow-up of suspicious palpable abnormalities. Note on Kassie scores and lifetime risk: 1. A Kassie score greater than 3% is considered moderate risk. If this is the case, consider specialist referral to assess eligibility for a risk reducing agent. 2. If overall lifetime risk for the development of breast cancer is 20% or higher, the patient may qualify for future screening with alternating mammogram and breast MRI. Electronically signed and approved by: Marie Ibrahim M.D. Radiologist
== END | disposition home or self-care (01) ==
LOC: RADMAMWWP 08:42
PROVIDERS: ATTEND Family Medicine
DX: Z12.31 Encounter for screening mammogram for malignant neoplasm of breast (principal); Z78.0 Asymptomatic menopausal state
CPT/HCPCS: 77063; 77067

== ENCOUNTER → 2023-08-01 | Day surgery (SDC) | payer MEDICARE ==
[2023-07-27 12:16] VITALS: BMI 32.5
[~2023-08-01] MED LIST changes: -ATORVASTATIN 80 MG TAB PO STA; +HEPARIN SODIUM 1,000 UN/ML (10ML VL) ONE; +LIDOCAINE 1% INJ 10MG/ML (20 ML MDV) ONE; -SODIUM CHLORIDE 0.9% 1,000 ML in EMPTY BAG 1 BAG IV ONE; +VERAPAMIL 2.5 MG/ML 2 ML AMP ONE; +fentaNYL (PF) 50 MCG/ML 2 ML AMP ONE
[2023-08-01] MEDS: SODIUM CHLORIDE 0.9% 1,000 ML IV ONE (09:30)
[2023-08-01] MEDS: SODIUM CHLORIDE 0.9% 1,000 ML in EMPTY BAG 1 BAG IV SCH (09:46)
[2023-08-01 10:10] VITALS: RESP 18; TEMP 97.8
[2023-08-01] MEDS: BENZOCAINE SPRAY 1 CAN TOPICAL ONE ×2 (10:20→10:36)
[2023-08-01] MEDS: MIDAZOLAM 2 MG/2 ML VIAL IVP ONE ×2 (10:38)
[2023-08-01] MEDS: fentaNYL (PF) 50 MCG/ML 2 ML AMP IVP ONE (10:38)
[2023-08-01] MEDS: LIDOCAINE 1% INJ 10MG/ML (20 ML MDV) SQ ONE (10:52)
[2023-08-01] MEDS: HEPARIN SODIUM 1,000 UN/ML (10ML VL) IVP ONE (10:59)
[2023-08-01] MEDS: VERAPAMIL SYRINGE (5 MG/10 ML) INTRAARTER ONE (10:59)
[2023-08-01] MEDS: IOPAMIDOL-370 100ML BTL INJ ONE ×2 (11:18→11:33)
--- NOTE | 2023-08-01 11:27 | ECHOT ---
TRANSESOPHAGEAL ECHOCARDIOGRAM INDICATION: Severe aortic stenosis. PROCEDURE NOTE: After obtaining informed consent, transesophageal echocardiogram was performed in left lateral position using an Omniplane probe, and IV sedation was obtained using Xylocaine spray, 2 mg of Versed, and 25 mcg of fentanyl. The patient tolerated the procedure well without any obvious immediate complications. FINDINGS: 1. Aortic valve is a 3-leaflet valve appears heavily calcified with severe restriction in leaflet mobility and a valve area of 0.6 cm2 by planimetry. There is moderate aortic regurgitation noted. Ascending aorta measures 3 cm. Mitral valve is anatomically normal. There is mild mitral regurgitation noted. Left atrium appears moderate to severely enlarged. Right atrium and right ventricle seen within normal limits. 2. Left ventricle has normal size and systolic function. Aorta shows moderate atherosclerotic changes. There is no evidence of [id number] shunt across the interatrial septum by color-flow Doppler or [id number] shunt by agitated saline contrast study. CONCLUSION: 1. Severe aortic stenosis involving a heavily calcified 3-leaflet aortic valve with a valve area of 0.6 cm2. 2. Normal LV systolic function. PLAN: I will perform cardiac catheterization and refer her for transaortic valve replacement. MMODL / IJN: [id number] /
--- NOTE | 2023-08-01 13:29 | CC ---
CARDIAC CATHETERIZATION REPORT INDICATIONS: Severe aortic stenosis. PROCEDURE NOTE: After obtaining informed consent, left heart catheterization and coronary angiogram were performed via the right radial artery using standard Marcus catheters. We had difficulty engaging the right coronary artery selectively and we attempted multiple catheters including 3.5 Marcus, 4 Marcus, Amplatz, and a Vance catheter, but we were only able to obtain subselective images. She has a very tortuous subclavian, which is making it difficult to manipulate the catheters. We could not do an aortogram as we were not able to advance the pigtail catheter into the ascending aorta. FINDINGS: 1. Hemodynamics: Central aortic pressure is 140/70 mm. 2. Left Ventriculogram: Left ventriculogram is not performed. 3. Angiographic Data: a.Right coronary artery was visualized subselectively. It is a small nondominant vessel and it seems free of significant disease. Left main coronary artery is a short vessel and is free of disease, divides into left anterior descending coronary artery and circumflex coronary artery. LAD and its branches, circumflex coronary artery and its branches are free of significant stenosis. CONCLUSIONS: No significant obstructive CAD, severe aortic stenosis based on the BRENDAN and 2D echo. PLAN: I am going to refer the patient for TAVR. MMODL / IJN: [id number] /
--- NOTE | 2023-08-01 13:45 | LTR ---
Dear Kian, I performed a BRENDAN and cardiac catheterization on Arabella Beard, detailed procedure reports are enclosed for your records. In brief, the evaluation revealed severe aortic stenosis and no evidence of significant obstructive CAD. The patient will be referred for TAVR. Thank you for giving us the privilege to participate in the care of this pleasant lady. Sincerely, LUNA / TEJAL: [id number] /
[2023-08-01 14:40] VITALS: BP 129/66; PULSE 47
== END ==
LOC: CATHCVL 08:54
PROVIDERS: ATTEND Internal Medicine Cardiovascular Disease
DX: I08.0 Rheumatic disorders of both mitral and aortic valves (principal); I10 Essential (primary) hypertension; E78.5 Hyperlipidemia, unspecified; M19.90 Unspecified osteoarthritis, unspecified site; E07.9 Disorder of thyroid, unspecified; Z79.890 Hormone replacement therapy; Z79.899 Other long term (current) drug therapy; Z88.1 Allergy status to other antibiotic agents; Z88.8 Allergy status to other drugs, medicaments and biological substances
CPT/HCPCS: 93312; 93320; 93325; 93454; C1769; C1894; J2250; J2001; J3010; J1644; Q9967

== ENCOUNTER → 2023-08-24 | Outpatient (CLI) | payer MEDICARE ==
[2023-08-24 10:24] LABS: Appearance,Urine Cloudy (Clear); Bacteria,Urine Rare /hpf; Bilirubin,Urine Negative (Negative); Blood,Urine Small (Negative); Color,Urine Yellow; Glucose,Urine (UA) Negative (Negative); Ketones,Urine Negative (Negative); Leukocyte Esterase,Urine Negative (Negative); Mucus,Urine Rare /hpf; Nitrite,Urine Negative (Negative); Partial Thromboplastin Time 24.7 sec (22.0-30.0); Protein,Urine Negative (Negative); Prothrombin Time 10.6 sec (10.0-12.5); RBC,Urine 2 /hpf (0-5); Specific Gravity,Urine 1.012 (1.001-1.035); Squamous Epithelial Cell,Urine 1 /hpf (0-4); Urobilinogen,Urine <2.0 mg/dL (<2.0); WBC,Urine 4 /hpf (0-5)
[2023-08-24 10:30] LABS: Basophils % (A) 1 %; Eosinophils # (A) 0.2 k/uL (0-0.7); Eosinophils % (A) 3 %; HCT 34.7 % (34.0-46.0); HGB 11.2 gm/dL (11.4-16.0); Hypochromasia Slight; Lymphocytes # (A) 1.8 k/uL (1.0-4.8); Lymphocytes % (A) 34 %; MCH 28.1 pg (25.0-35.0); MCHC 32.2 g/dL (31.0-37.0); MCV 87.2 fL (80.0-100.0); Mean Platelet Volume 7.7; Monocytes # (A) 0.3 k/uL (0-1.0); Monocytes % (A) 6 %; Neutrophils # (A) 2.8 k/uL (1.3-7.7); Neutrophils % (A) 55 %; Platelet Count 227 k/uL (150-450); RBC 3.98 m/uL (3.80-5.40); RDW 14.7 % (11.5-15.5); WBC 5.2 k/uL (3.8-10.6)
[2023-08-24 10:44] LABS: ALT 15 U/L (4-34); AST 22 U/L (14-36); African American GFR (CKD) >90 (>60 ml/min/1.73 sqM); Albumin 3.8 g/dL (3.5-5.0); Albumin/Globulin Ratio 1.2; Alkaline Phosphatase 71 U/L (38-126); Anion Gap 5 mmol/L; Bilirubin,Unconjugated 0.2 mg/dL (0.0-1.1); Blood Urea Nitrogen 24 mg/dL (7-17); Calcium 9.2 mg/dL (8.4-10.2); Carbon Dioxide 26 mmol/L (22-30); Chloride 110 mmol/L (98-107); Globulin 3.3 g/dL; Glucose 97 mg/dL (74-99); Non-African American GFR(CKD) >90 (>60 ml/min/1.73 sqM); Potassium 4.4 mmol/L (3.5-5.1); Sodium 141 mmol/L (137-145); Total Bilirubin 0.5 mg/dL (0.2-1.3); Total Protein 7.1 g/dL (6.3-8.2)
[2023-08-24 10:51] LABS: NT-Pro-B-Type Natriuretic Pept 639 pg/mL
[2023-08-24 16:20] LABS: Chol/HDL Ratio 3.95 Ratio; LDL Cholesterol,Calculated 128.1 mg/dL (0.0-131.0)
== END | disposition home or self-care (01) ==
LOC: LABWHC1 08:43
PROVIDERS: ATTEND Thoracic Surgery (Cardiothoracic Vascular Surgery)
DX: Z01.818 Encounter for other preprocedural examination (principal); I35.0 Nonrheumatic aortic (valve) stenosis; N28.9 Disorder of kidney and ureter, unspecified; E11.9 Type 2 diabetes mellitus without complications; E07.9 Disorder of thyroid, unspecified; E87.8 Other disorders of electrolyte and fluid balance, not elsewhere classified; E78.5 Hyperlipidemia, unspecified; I45.10 Unspecified right bundle-branch block; R00.1 Bradycardia, unspecified; R35.0 Frequency of micturition; R58 Hemorrhage, not elsewhere classified; Z79.899 Other long term (current) drug therapy; Z79.01 Long term (current) use of anticoagulants; R94.31 Abnormal electrocardiogram [ECG] [EKG]
CPT/HCPCS: 36415; 80053; 80061; 81001; 82248; 83036; 83735; 83880; 84443; 85025; 85610; 85730; 87086; 93005; 94150

== ENCOUNTER → 2023-08-28 | Outpatient (CLI) | payer MEDICARE ==
--- NOTE | 2023-08-28 11:48 | CT ---
EXAMINATION TYPE: CT TAVR Planning DATE OF EXAM: 08/28/2023 HISTORY: Non-rheumatic aortic valve stenosis, TAVR planning. CT DLP: 2490.30 mGycm Automated Exposure Control for Dose Reduction was Utilized. CONTRAST: CT scan of the chest, abdomen and pelvis is performed with IV Contrast, patient injected with 125 mL of Isovue 370. COMPARISON: None TECHNIQUE: Helical imaging obtained through the chest, abdomen and pelvis during arterial phase sia armando administration of radiographic contrast intravenously. FINDINGS: See report from [facility] regarding preprocedural planning CHEST: Lower Neck and Thyroid: No significant findings Lungs: No significant findings Central Airway: No significant findings Pleura: No significant findings Pulmonary Arteries: No significant findings Heart and Pericardium: Cardiomegaly with a left ventricular hypertrophy suggested. Lymph Nodes: No significant findings Mediastinum & Esophagus: No significant findings AV Calcification Severity: Moderate ABDOMEN/PELVIS: Please note arterial phase of the imaging limits detailed evaluation of the solid abdominal organs. Liver: No significant findings Spleen: No significant findings Kidneys: No significant findings Adrenal Glands: No significant findings Pancreas: No significant findings Gallbladder: No significant findings Bowel and Mesentery: No significant findings Lymph Nodes: No significant findings Urinary Bladder: No significant findings Pelvic Organs: No significant findings Other: No significant findings Other Lines/Tubes/Devices/Hardware: None IMPRESSION: As above
== END | disposition home or self-care (01) ==
LOC: RADCTMAIN 10:32
PROVIDERS: ATTEND Thoracic Surgery (Cardiothoracic Vascular Surgery)
DX: Z01.818 Encounter for other preprocedural examination (principal); I35.0 Nonrheumatic aortic (valve) stenosis; E11.9 Type 2 diabetes mellitus without complications; N28.9 Disorder of kidney and ureter, unspecified; E78.5 Hyperlipidemia, unspecified; R58 Hemorrhage, not elsewhere classified; E07.9 Disorder of thyroid, unspecified; R35.0 Frequency of micturition; Z79.01 Long term (current) use of anticoagulants; Z79.899 Other long term (current) drug therapy
CPT/HCPCS: 71275; 36415; 74174; Q9967

== ENCOUNTER → 2023-09-25 | Outpatient (CLI) | payer MEDICARE ==
[2023-09-25 11:18] LABS: INR 0.9 (<1.2); Partial Thromboplastin Time 24.8 sec (22.0-30.0); Prothrombin Time 10.4 sec (10.0-12.5)
[2023-09-25 15:35] LABS: HCT 32.1 % (37.2-46.3); HGB 10.1 g/dL (12.0-15.0); MCH 27.3 pg (27.0-32.0); MCHC 31.5 g/dL (32.0-37.0); MCV 86.8 FL (80.0-97.0); Mean Platelet Volume 9.8 FL (9.5-12.2); NRBC Per 100 WBC 0 X 10*3/uL (0.00-0.01); Platelet Count 244 X 10*3/uL (140-440); RDW 15.6 % (11.5-14.5); WBC 5.25 X 10*3/uL (4.50-10.00)
[2023-09-25 15:54] LABS: ALT 15 U/L (8-44); AST 21 U/L (13-35); Albumin 4.2 g/dL (3.8-4.9); Albumin/Globulin Ratio 1.56 Ratio (1.60-3.17); Alkaline Phosphatase 77 U/L (41-126); BUN/Creat Ratio 35.71 Ratio (12.00-20.00); Calcium 9.8 mg/dL (8.7-10.3); Carbon Dioxide 26.7 mmol/L (21.6-31.8); Chloride 104 mmol/L (96-109); Globulin 2.7 g/dL (1.6-3.3); Glucose 86 mg/dL (70-110); Potassium 4.4 mmol/L (3.5-5.5); Sodium 142 mmol/L (135-145); Total Bilirubin 0.4 mg/dL (0.3-1.2); Total Protein 6.9 g/dL (6.2-8.2)
== END | disposition home or self-care (01) ==
LOC: LABWHC1 09:11
PROVIDERS: ATTEND Thoracic Surgery (Cardiothoracic Vascular Surgery)
DX: Z01.812 Encounter for preprocedural laboratory examination (principal); I35.0 Nonrheumatic aortic (valve) stenosis
CPT/HCPCS: 36415; 80053; 85027; 85610; 85730; 86850; 86900; 86901

== ENCOUNTER 2023-09-27 05:33 | Inpatient (IN) | payer MEDICARE ==
[2023-09-27] MEDS ORDERED: CLEVIDIPINE BUTYRATE 25 MG in EMPTY BAG 1 BAG IV PRN (06:00)
[2023-09-27] MEDS ORDERED: LACTATED RINGERS 1,000 ML IV SCH (06:00)
[2023-09-27] MEDS ORDERED: TRANEXAMIC ACID 2,000 MG in SODIUM CHLORIDE 0.9% 80 ML IV PRN (06:00)
[2023-09-27] MEDS ORDERED: INSULIN REGULAR 100 UNIT in SODIUM CHLORIDE 0.9% 100 ML IV PRN (06:00)
[2023-09-27] MEDS ORDERED: SODIUM CHLORIDE 0.9% 500 ML 500 ML INTRAARTER PRN (06:00)
[2023-09-27] MEDS ORDERED: PROTAMINE SULFATE 250 MG in EMPTY BAG 1 BAG IV PRN (06:00)
[2023-09-27] MEDS ORDERED: ELECTROLYTE-A SOLUTION 1,000 ML with POTASSIUM CHLORIDE 100 MEQ, MAGNESIUM SULFATE 16 M... IV PRN (06:00)
[2023-09-27] MEDS ORDERED: NITROGLYCERIN-D5W PMX 25 MG/250 ML BTL IV PRN (06:00)
[2023-09-27] MEDS: ATORVASTATIN 10 MG TAB PO ONE (06:10)
[2023-09-27] MEDS: ASPIRIN 325 MG TAB PO ONE (06:10)
[2023-09-27] MEDS: CLOPIDOGREL 75 MG TAB PO ONE (06:16)
[2023-09-27 06:30] LABS: Glucose,Whole Blood 97 mg/dL (70-110)
[2023-09-27] MEDS: SODIUM CHLORIDE 0.9% 1,000 ML IV ONE (06:40)
[2023-09-27] MEDS: METOPROLOL TARTRATE 12.5 MG TAB PO ONE (07:04)
[2023-09-27] MEDS ORDERED: LIDOCAINE 1% INJ 10MG/ML (20 ML MDV) ONE (07:15)
[2023-09-27] MEDS ORDERED: HEPARIN SODIUM,PORCINE 10,000 UNIT/ML 1 ML VIAL ONE (07:15)
[2023-09-27] MEDS ORDERED: NEOSTIGMINE 1 MG/ML 10 ML VIAL ONE (07:15)
[2023-09-27] MEDS ORDERED: WATER FOR INJECTION, STERILE 10 ML VIAL IV ONE (07:15)
[2023-09-27] MEDS ORDERED: GLYCOPYRROLATE 0.2 MG/ML 2 ML VIAL ONE (07:15)
[2023-09-27] MEDS ORDERED: ePHEDrine 50 MG/ML 1 ML VIAL ONE (07:15)
[2023-09-27] MEDS ORDERED: PROPOFOL 10 MG/ML 20 ML VIAL IV ONE (07:15)
[2023-09-27] MEDS ORDERED: ROCURONIUM 10 MG/ML (5 ML VIAL) IV ONE (07:15)
[2023-09-27] MEDS ORDERED: fentaNYL (PF) 50 MCG/ML 2 ML AMP ONE (07:15)
[2023-09-27] MEDS ORDERED: PROTAMINE SULFATE 10 MG/ML 5 ML VIAL ONE (07:15)
[2023-09-27] MEDS ORDERED: MIDAZOLAM 2 MG/2 ML VIAL ONE (07:15)
[2023-09-27] MEDS: IOPAMIDOL-370 100ML BTL INJ ONE ×2 (09:04→09:05)
--- NOTE | 2023-09-27 09:29 | P.ANPRN ---
Procedure Note - Anesthesia - BRENDAN Intraop Pre Bypass BRENDAN Intraop - Anesthesia Indication: tavr Date of Procedure: 09/27/23 Pre-operative Diagnosis: aortic stenosis Post-operative Diagnosis: aortic stenosis s/p tavr Surgeon: Danie Major Ejection Fraction: Normal Regional Wall Motion Abnormalities: None Left Ventricle Hypertrophy: No R. Ventricle Function: Normal Anatomy: Trileaflet (heavily calcified. peak gradient 130, mean 74) Aortic Stenosis: Severe Aortic Regurgitation: Trace Mitral Stenosis: None Mitral Regurgitation: Mild Tricuspid Stenosis: None Tricuspid Regurgitation: Trace Pulmonic Stenosis: None Pulmonic Regurgitation: None R. Atrial Dilation: No R. Atrial PFO: No L. Atrial Dilation: No Aortic Dissection: No Aortic Calcification: Severe (calcification of the annulus and valve) Plural Effusion: None
--- NOTE | 2023-09-27 09:31 | P.ANPRN ---
Procedure Note - Anesthesia - BRENDAN Intraop Post Bypass BRENDAN Intraop Post Bypass Procedure Performed: tavr Ejection Fraction: Normal Regional Wall Motion Abnormalities: None R. Ventricle Function: Normal Aortic Valve: no appreciable perivalvular leak. No AI, . Residual mean gradient of 9 Mitral Valve: Unchanged Tricuspid: Unchanged Pulmonic: Unchanged Aortic Dissection: No
--- NOTE | 2023-09-27 09:33 | P.OP ---
Description of Procedure: Transcatheter Aoritc Valve Replacement Operative report PROCEDURE PERFORMED: 1. Percutaneous Aortic Valve Implantation using a 29 mm Evolut-FX. 2. Transesophageal echocardiography (performed by anesthesia) 3. Ultrasound guided access and repair of left femoral artery access site by Perclose closure device. 4. Placement of temporary pacemaker wire. 5. Aortic root angiography 6. Pre TAVR balloon aortic vavluloplasty with a 20mm True balloon 7. Port TAVR balloon aortic valvuloplasty with a 22mm True balloon INDICATIONS: 1. 78 year-old with a history of severe symptomatic aortic valve stenosis. PERFORMING PHYSICIANS: 1. Theron Hernandez, Interventional Cardiology 2. Danie Major MD, Cardiothoracic Surgeon. SEDATION: General anesthesia provided by anesthesia, see separate note APPROACH: Left femoral artery via percutaneous approach PROCEDURE DESCRIPTION: The patient was discussed at valve clinic with multidisciplinary approach with cardiothoracic surgeon as well as residential nurse and thought better treated with TAVR. Risks, benefits, and alternatives of the procedure had been explained to the patient who understood the risks and agreed to proceed. After consents were obtained, patient was brought to the transcatheter aortic valve implantation room in the cardiac recyclable materials distributor and general anesthesia was provided by the anesthesiologist (see separate report). Once full body sterile prep was performed, right subclavian venous access was obtained and a temporary pacemaker was screwed in, performed by cardiothoracic surgery. Pacing threshholds were checked and deemed appropriate. Next the right femoral artery was accessed using a modified Seldinger technique, ultrasound guidance and micropuncture technique. A 6 Sinhala Rabi sheath was placed in the right femoral artery. Next, a 6-Sinhala pigtail catheter was advanced into the aorta and positioned in the aortic root, aortic root angiography was performed to determine optimal deployment angle. The left femoral artery was accessed using modified Seldinger technique, micropuncture technique and under direct ultrasound guidance. Femoral angiogram was done showing access in the common femoral artery and a 6Fr sheath was placed. Next preclose technique was performed using 2 Percloses. Next a 0.035 Safari wire was placed in the Aorta via a pigtail catheter. Over that the arteriotomy was serially dilated and a 14 Fr Thomson sheath was placed. Next a 6F- AL1 catheter was advanced over a wire to the aortic root. There was difficulty crossing the valve and therefore the AL was changed to an AL2. A straight wire was advanced through the catheter and used to cross the severely stenotic valve. The AL2 was then exchanged for a 6Fr pigtail catheter and pressure measurements were obtained. The 0.035 Carloz wire was then positioned in the apex. Balloon aortic vavluloplasty was performed with a 20mm True balloon. Next a 29 mm Evolut-FX was advanced. The valve was then positioned across the aortic valve and confirmed with aortic root angiography. The valve was initially partially deployed however needed repositioning and therefore was recaptured twice. The valve was underexpanded. The valve was then deployed in proper position using slow deployment and with rapid pacing in conjuncture with aortic root angiography and BRENDAN. The delivery system was withdrawn back into the arch. The valve was post dilated with a 22mm True balloon. BRENDAN demonstrated a satisfactory result. There was trace para valvular leak. There was no evidence of any other significant abnormalities. The preclose Perclose was then deployed in the left femoral artery. There was a small leak and therefore manual pressure was held and hemostasis was achieved. A Rim catheter was then advanced to the level of the iliac bifurcation via the right femoral access. Femoral angiogram was performed that showed no contrast leak. The right femoral angiogram demonstrated an arteriotomy in the common femoral artery and this was repaired using a 6F angioseal device with complete hemostasis. The temporary venous pacemaker was sutured in place. The patient was then transported to the ICU in hemodynamically stable condition, requiring no pressor support. COMPLICATIONS: None CONCLUSION: 1. Implantaion of 29 mm Evolut-FX transcatheter aortic valve via left femoral approach under BRENDAN and fluoro guidance with trace luis-valvular aortic regurgitation. 2. Placement of temporary pacemaker wire 3. Aortic Root Aortogram. 4. Pre TAVR balloon aortic vavluloplasty with a 20mm True balloon 5. Port TAVR balloon aortic valvuloplasty with a 22mm True balloon RECOMMENDATIONS: The patient will be monitored in the ICU for hemodynamic and electrical stability.
--- NOTE | 2023-09-27 09:35 | P.OP ---
Date of Procedure: 09/27/23 Preoperative Diagnosis: Severe calcific tricuspid aortic stenosis Postoperative Diagnosis: Same Procedure(s) Performed: Transcatheter aortic valve replacement via left percutaneous transfemoral approach with 29 mm Medtronic evolute flex transcatheter valve, temporary pacemaker wire placement via right subclavian puncture Implants: 29 mm Medtronic evolute flex transcatheter valve, right subclavian temporary pacemaker wire Anesthesia: GETA Surgeon: Danie Major (Cardiovascular surgeon) Commercial Lending Assistant #1: Theron Hernandez (bench examiner) Estimated Blood Loss (ml): 25 IV fluids (ml): 1,000 Pathology: none sent Condition: stable Disposition: ICU Indications for Procedure: 78-year-old morbidly obese female with severe to critical tricuspid calcific aortic stenosis. She is minimally symptomatic but also minimally ambulatory. She needs right total hip replacement. Replacement of the aortic valve was required prior to orthopedic surgery. Patient was evaluated in the high risk valve clinic and felt to be most appropriate for transcatheter aortic valve replacement. Operative Findings: Aortic valve was extremely calcified as well as severe calcification of the aortic annulus. There was very high gradient. This was measured at 58 mmHg upon crossing the valve. Valve implant proceeded at depths of 3 on the left and 3 on the right. There was no significant aortic insufficiency on the completion BRENDAN. Groins healed up well with no evidence of leak. Description of Procedure: Patient was brought to the operating room anesthetized and intubated. She was appropriately positioned. Anterior torso and bilateral groins were sterilely prepped and draped. Right subclavian venous puncture was performed with an 18- gauge needle and a guidewire threaded into the right atrium. Introducer and dilator were placed over the wire. Through the introducer sheath screw-in ventricular lead was manipulated into the apex of the RV and screwed in. Pacing threshold was less than 1 V. Lead was secured to the skin with 2-0 silk suture ligatures. Bilateral femoral arterial access was obtained. On the right a long 6 Rwandan sheath was placed up into the descending thoracic aorta. Through this a pigtail catheter was advanced into the noncoronary sinus of Valsalva. Root injection was performed. On the left 6 Rwandan sheath was placed and then 2 Perclose devices were placed and a 8 Rwandan sheath was placed. Patient was systemically heparinized and the 8 Rwandan sheath was exchanged for a 14 Rwandan sheath over a stiff wire. AL-1 catheter was advanced over the stiff wire and positioned in the ascending aorta. Valve was crossed with a straight wire after exchanging the AL-1 catheter for a JL catheter due to inability to cross with the AL-1. Pigtail catheter was positioned in the apex of the ventricle and transvalvular gradients were measured. Stiff wire was then positioned in the apex of the ventricle. A Medtronic 29 mm evolute flex valve and been loaded on the valve deployment system on the back table and was checked under fluoroscopy. Predilatation of the aortic valve was performed under rapid ventricular pacing with a 20 mm true balloon. This proceeded uneventfully. 14 Rwandan sheath was exchanged for the valve delivery system on the left and this was brought up and across the aortic valve. After several manipulations, the valve was deployed under rapid ventricular pacing with the deployment depths of 3 and 3. Despite predilatation the valve still appeared severely constrained and a 22 true balloon was used to post dilate the valve after exchanging the valve delivery system back for the 14 Rwandan sheath. Following the postdilatation, the valve appeared to have expanded well and BRENDAN demonstrated excellent valve expansion with good depth and no significant aortic insufficiency. Heparin was reversed with protamine and the 14 Rwandan sheath removed and the 2 Perclose devices deployed. Completion angiography looked good. Patient was in intermittent heart block with a long first-degree block of remained ventricularly paced at a low level through the temporary wire. The right femoral arterial sheath was removed and hemostasis obtained. Patient was transferred to ICU in stable condition.
[2023-09-27 09:42] LABS: Glucose,Whole Blood 112 mg/dL (70-110)
[2023-09-27] MEDS ORDERED: IPRATROPIUM-ALBUTEROL 3 ML NEB INHALATION PRN (09:50)
[2023-09-27] MEDS ORDERED: Magnesium Replacement Protocol 1 EACH MISC MISCELLANE PRN (09:50)
[2023-09-27] MEDS ORDERED: MECLIZINE 12.5 MG TAB PO PRN (09:50)
[2023-09-27] MEDS ORDERED: ONDANSETRON 4 MG/2 ML VIAL IVP PRN (09:50)
[2023-09-27] MEDS ORDERED: Potassium Replacement Protocol 1 EACH MISC MISCELLANE PRN (09:50)
[2023-09-27] MEDS ORDERED: CALCIUM GLUCONATE IN NACL 2 GM in SALINE 1 100ML.BAG IVPB PRN (09:50)
[2023-09-27 10:13] LABS: Potassium 3.8 mmol/L (3.5-5.1)
[2023-09-27 10:14] LABS: African American GFR (CKD) >90 (>60 ml/min/1.73 sqM); Anion Gap 2 mmol/L; Blood Urea Nitrogen 25 mg/dL (7-17); Calcium 9.2 mg/dL (8.4-10.2); Carbon Dioxide 30 mmol/L (22-30); Chloride 107 mmol/L (98-107); Glucose 93 mg/dL (74-99); Non-African American GFR(CKD) 88 (>60 ml/min/1.73 sqM); Sodium 139 mmol/L (137-145)
[2023-09-27 10:49] LABS: Basophils % (A) 1 %; Eosinophils # (A) 0.2 k/uL (0-0.7); Eosinophils % (A) 3 %; HCT 28.2 % (34.0-46.0); Lymphocytes # (A) 2.3 k/uL (1.0-4.8); Lymphocytes % (A) 34 %; MCH 27.8 pg (25.0-35.0); MCHC 32.8 g/dL (31.0-37.0); MCV 84.7 fL (80.0-100.0); Mean Platelet Volume 7.6; Monocytes # (A) 0.4 k/uL (0-1.0); Monocytes % (A) 6 %; Neutrophils # (A) 3.7 k/uL (1.3-7.7); Neutrophils % (A) 54 %; Platelet Count 207 k/uL (150-450); RBC 3.33 m/uL (3.80-5.40); RDW 15.5 % (11.5-15.5); WBC 6.7 k/uL (3.8-10.6)
[2023-09-27] MEDS: ACETAMINOPHEN TAB 325 MG TAB PO PRN (10:57)
[2023-09-27 10:59] LABS: HGB 9.3 gm/dL (11.4-16.0)
[2023-09-27] MEDS: HYDROcodone/APAP 5-325MG 1 EACH TAB PO PRN (11:26)
[2023-09-27] MEDS: LACTATED RINGERS 1,000 ML IV SCH (12:08)
--- NOTE | 2023-09-27 15:56 | XR ---
EXAMINATION TYPE: XR chest 1V portable DATE OF EXAM: 09/27/2023 CLINICAL HISTORY: Postoperative cardiac surgery. TECHNIQUE: Single AP portable upright view of the chest is obtained. COMPARISON: Chest x-ray from July 04, 2017 FINDINGS: Persistent cardiomegaly. There is a single lead pacemaker projecting over the right ventric le. Lungs are clear without pleural effusion or pneumothorax seen. Osseous structures are intact. IMPRESSION: Cardiomegaly without acute pulmonary process.
[2023-09-27] MEDS: CALCIUM CARBONATE 500 MG CHEWABLE PO PRN (19:05)
[2023-09-27] MEDS: SENNOSIDES-DOCUSATE SODIUM 1 EACH TAB PO SCH (20:57)
[2023-09-27] MEDS: amLODIPine 5 MG TAB PO SCH (20:57)
[2023-09-27] MEDS: ATORVASTATIN 40 MG TAB PO SCH (20:57)
[2023-09-27] MEDS: MULTIVITAMINS, THERA 1 EACH TAB PO SCH (20:57)
[2023-09-27] MEDS ORDERED: NON FORMULARY DRUG (Vitamin B Complex [Vitamin B Complex] 1 EACH Capsule) PO SCH (21:00)
[2023-09-27] MEDS: OXYBUTYNIN 10 MG TAB.ER.24 PO SCH (21:49)
[2023-09-28] MEDS: HEPARIN SODIUM,PORCINE 5,000 UNIT/ML 1 ML VIAL SQ SCH (00:52)
[2023-09-28 04:34] LABS: Basophils % (A) 0 %; Eosinophils # (A) 0.1 k/uL (0-0.7); Eosinophils % (A) 2 %; HCT 29.2 % (34.0-46.0); Hypochromasia Slight; Lymphocytes # (A) 1.8 k/uL (1.0-4.8); Lymphocytes % (A) 26 %; MCH 27.1 pg (25.0-35.0); MCV 87.6 fL (80.0-100.0); Mean Platelet Volume 7.7; Monocytes # (A) 0.6 k/uL (0-1.0); Monocytes % (A) 8 %; Neutrophils # (A) 4.4 k/uL (1.3-7.7); Neutrophils % (A) 61 %; Platelet Count 188 k/uL (150-450); RBC 3.33 m/uL (3.80-5.40); RDW 15.4 % (11.5-15.5); WBC 7.1 k/uL (3.8-10.6)
[2023-09-28 05:02] LABS: Ionized Calcium 4.9 mg/dL (4.5-5.3)
[2023-09-28 05:16] LABS: ALT 16 U/L (4-34); AST 37 U/L (14-36); African American GFR (CKD) >90 (>60 ml/min/1.73 sqM); Albumin 3.2 g/dL (3.5-5.0); Alkaline Phosphatase 74 U/L (38-126); Anion Gap 2 mmol/L; Blood Urea Nitrogen 14 mg/dL (7-17); Calcium 8.8 mg/dL (8.4-10.2); Carbon Dioxide 26 mmol/L (22-30); Chloride 110 mmol/L (98-107); Glucose 98 mg/dL (74-99); Magnesium 1.9 mg/dL (1.6-2.3); Non-African American GFR(CKD) >90 (>60 ml/min/1.73 sqM); Potassium 3.7 mmol/L (3.5-5.1); Sodium 138 mmol/L (137-145); Total Bilirubin 0.4 mg/dL (0.2-1.3); Total Protein 5.9 g/dL (6.3-8.2)
[2023-09-28] MEDS ORDERED: Potassium Replacement Protocol 1 EACH MISC MISCELLANE PRN (05:58)
[2023-09-28] MEDS: LEVOTHYROXINE 125 MCG TAB PO SCH (06:04)
[2023-09-28] MEDS: PANTOPRAZOLE 40 MG TABLET PO SCH (06:04)
[2023-09-28] MEDS: POTASSIUM CHLORIDE ER 20 MEQ TAB.ER PO SCH (06:04)
--- NOTE | 2023-09-28 07:56 | XR ---
EXAMINATION TYPE: XR chest 1V portable DATE OF EXAM: 09/28/2023 COMPARISON: 09/27/2023 HISTORY: Postop TECHNIQUE: Single frontal view of the chest is obtained. FINDINGS: Heart is enlarged and there is aortic valve replacement surgery. Cardiac leads stable. No overt failure or pneumothorax. No consolidation or pleural effusion. Atherosclerotic change aorta. IMPRESSION: Stable cardiomegaly.
--- NOTE | 2023-09-28 08:22 | P.PN ---
Subjective Progress Note Date: 09/28/23 Principal diagnosis: Severe symptomatic aortic stenosis, complete heart block. History of hypertension, hyperlipidemia, MARLINE, hypothyroid, arthritis, remote history of pneumonia, lifelong nonsmoker POD #1 percutaneous Aortic Valve Implantation using a 29 mm Evolut-FX The patient was seen and examined this morning, doing well. She was sitting up in recliner in the intensive care unit in no acute distress. Denies significant pain or shortness of breath, denies any other symptoms associated with valvular disease. Patient did need to be connected to external pacemaker and was paced last night as her underlying rhythm was in the 30s with a complete heart block. This is somewhat expected as pre-TAVR she had bradycardia with right bundle branch block and long first-degree AV block, and we did discuss with her at TAVR clinic that there was a high likelihood of the need for permanent pacemaker after her TAVR. She did eat half of her breakfast this morning but then was made n.p.o. for permanent pacemaker this afternoon due to complete heart block. She has been on no AV deng blocking agents and is unlikely to recover normal sinus rhythm on her own. Labs, x-ray were reviewed. No other new concerns. Objective - Vital Signs Vital signs: Vital Signs Temp 97.8 F 09/28/23 06:00 Pulse 49 L 09/28/23 07:00 Resp 18 09/28/23 07:00 BP 136/57 09/28/23 07:00 Pulse Ox 94 L 09/28/23 07:00 FiO2 Intake & Output 09/27/23 09/28/23 09/28/23 18:59 06:59 18:59 Intake Total 1769 550 Output Total 1200 1350 0 Balance 569 -800 0 Weight 93.9 kg Intake: IV 809 Lactated Ringers 1,000 ml 250 @ 50 mls/hr IV .Q20H [facility] Rx#:[id number] Pressure Bag 9 ceFAZolin 2 gm In Sodium 50 Chloride 0.9% 50 ml @ 100 mls/hr IVPB Q8HR [facility] Rx# :[id number] Intake, IV Titration 50 Amount ceFAZolin 2 gm In Sodium 50 Chloride 0.9% 50 ml @ 100 mls/hr IVPB ONCE ONE Rx# :[id number] Oral 960 250 Tube Feeding 250 Output: Urine 1200 1350 0 Other: Voiding Method Bedside Commode Bedside Commode # Bowel Movements 0 ABP, PAP, CO, CI - Last Documented Arterial Blood Pressure 186/58 - Exam CONSTITUTIONAL: Appears comfortable, cooperative, no acute distress RESPIRATORY: Lungs sounds diminished bilaterally. Respirations even, nonlabored. Currently on room air with oxygen saturation 94% CARDIOVASCULAR: S1, S2 present. Regular rate and rhythm, ventricular paced on telemetry, underlying rhythm complete heart block in the 30s. Palpable peripheral pulses bilaterally. No edema present GASTROINTESTINAL: Abdomen soft, nontender, nondistended. Active bowel sounds present 4 quadrants. Tolerating diet, made n.p.o after breakfast GENITOURINARY: Continues to void INTEGUMENTARY: Skin is warm and dry, bilateral groins soft, nontender NEUROLOGIC: Cranial nerves II through XII intact MUSKULOSKELETAL: Able to move all extremities, strength equal bilaterally, gait slow with walker PSYCHIATRIC: Alert and oriented to person place and time, appropriate affect, intact judgment and insight INVASIVE LINES AND TUBES: Right subclavian temporary pacer wire present and connected to generator - Allied health notes Allied health notes reviewed: nursing - Labs CBC & Chem 7: 09/28/23 03:59 09/28/23 03:59 Labs: Abnormal Lab Results - Last 24 Hours (Table) 09/27/23 09/27/23 09/27/23 Range/Units 06:30 09:40 10:15 RBC 3.33 L (3.80-5.40) m/uL Hgb 9.3 L D (11.4-16.0) gm/dL Hct 28.2 L (34.0-46.0) % Chloride (98-107) mmol/L BUN 25 H (7-17) mg/dL Creatinine (0.52-1.04) mg/dL POC Glucose (mg/dL) 112 H (70-110) mg/dL AST (14-36) U/L Total Protein (6.3-8.2) g/dL Albumin (3.5-5.0) g/dL 09/28/23 09/28/23 Range/Units 03:59 03:59 RBC 3.33 L (3.80-5.40) m/uL Hgb 9.0 L (11.4-16.0) gm/dL Hct 29.2 L (34.0-46.0) % Chloride 110 H (98-107) mmol/L BUN (7-17) mg/dL Creatinine 0.48 L (0.52-1.04) mg/dL POC Glucose (mg/dL) (70-110) mg/dL AST 37 H (14-36) U/L Total Protein 5.9 L (6.3-8.2) g/dL Albumin 3.2 L (3.5-5.0) g/dL - Imaging and Cardiology Chest x-ray: report reviewed, image reviewed Assessment and Plan Assessment: Severe symptomatic aortic stenosis, status post percutaneous Aortic Valve Implantation using a 29 mm Evolut-FX Complete heart block History of hypertension Hyperlipidemia MARLINE Hypothyroid Arthritis Remote history of pneumonia Lifelong nonsmoker Plan: The patient was made n.p.o. after breakfast for permanent pacemaker insertion this afternoon Increase activity as tolerated Continue current medication regimen, will hold Lasix and start IV fluids as she is now n.p.o. Will monitor labs and x-rays again in the morning Pain control with current medication regimen Awaiting post TAVR echocardiogram Will have pacemaker interrogated tomorrow morning and likely discharge to home tomorrow More recommendations to follow
[2023-09-28] MEDS ORDERED: MAGNESIUM HYDROXIDE 2,400 MG/30 ML CUP PO PRN (09:00)
[2023-09-28] MEDS ORDERED: bisacodyL 10 MG SUPP RECTAL PRN (09:00)
[2023-09-28] MEDS ORDERED: FUROSEMIDE 40 MG TAB PO SCH (09:00)
[2023-09-28] MEDS ORDERED: ASPIRIN 81 MG PO SCH (09:00)
[2023-09-28] MEDS: MAGNESIUM SULFATE-D5W PMX 1 GM in DEXTROSE/WATER 1 100ML.BAG IVPB ONE (09:07)
[2023-09-28] MEDS: ASPIRIN 81 MG PO SCH (09:07)
[2023-09-28] MEDS: DEXTROSE 5%-0.45% NACL 1,000 ML IV SCH (09:09)
[2023-09-28 10:11] VITALS: BMI 37.8
[2023-09-28] MEDS ORDERED: SODIUM CHLORIDE 0.9% 1,000 ML IV SCH ×2 (14:00→16:00)
[2023-09-28] MEDS: IOPAMIDOL-370 100ML BTL IVP ONE (14:30)
[2023-09-28] MEDS ORDERED: fentaNYL (PF) 50 MCG/ML 2 ML AMP ONE ×2 (14:38→16:07)
[2023-09-28] MEDS ORDERED: LIDOCAINE 1% INJ 10MG/ML (20 ML MDV) ONE ×3 (14:42→15:02)
[2023-09-28] MEDS: MIDAZOLAM 2 MG/2 ML VIAL IVP ONE ×4 (14:45→15:02)
[2023-09-28] MEDS: IV FLUID CONTINUATION 1,000 ML IV ONE (14:46)
[2023-09-28] MEDS: fentaNYL (PF) 50 MCG/1 ML VIAL IVP ONE ×4 (14:46→16:10)
[2023-09-28] MEDS: LIDOCAINE 1% INJ 10MG/ML (20 ML MDV) SQ ONE (15:01)
--- NOTE | 2023-09-28 16:02 | CA ---
Transthoracic Echo Report Name: Arabella Beard Age: 78 Gender: F : 1945 Exam Date: 09/28/2023 08:12 Exam Location: [facility] Ht (in): 62 Wt (lb): 207 Ordering Physician: Hiral Byrd Attending/Referring Phys: [id number], Carson Grounds Cleaner Griselda Pena, RACHEL Procedure CPT: Indications: post TAVR Cardiac Hx: Technical Quality: Good Contrast 1: Total Dose (mL): Contrast 2: Total Dose (mL): MEASUREMENTS (Male / Female) Normal Values 2D ECHO LV Diastolic Diameter PLAX 6.2 cm 4.2 - 5.9 / 3.9 - 5.3 cm LV Systolic Diameter PLAX 4.2 cm IVS Diastolic Thickness 1.3 cm 0.6 - 1.0 / 0.6 - 0.9 cm LVPW Diastolic Thickness 1.4 cm 0.6 - 1.0 / 0.6 - 0.9 cm LV Relative Wall Thickness 0.4 LVOT Diameter 2.1 cm Aortic Root Diameter 1.9 cm LA Systolic Diameter LX 3.5 cm 3.0 - 4.0 / 2.7 - 3.8 cm LV Diastolic Volume MOD BP 113.4 cm??? 67 - 155 / 56 - 104 cm??? LV Systolic Volume MOD BP 47.9 cm??? - 58 / 19 - 49 cm??? LV Ejection Fraction MOD BP 57.7 % >= 55 % LV Cardiac Index MOD BP 1578.8 cm???/min???m??? LV Diastolic Volume MOD 4C 126.1 cm??? LV Systolic Volume MOD 4C 43.0 cm??? LV Ejection Fraction MOD 4C 65.9 % LV Cardiac Index MOD 4C 2003.8 cm???/min???m??? LV Diastolic Length 4C 7.7 cm LV Systolic Length 4C 4.7 cm LV Diastolic Volume MOD 2C 84.1 cm??? LV Systolic Volume MOD 2C 51.9 cm??? LV Ejection Fraction MOD 2C 38.2 % LV Cardiac Index MOD 2C 774.8 cm???/min???m??? LV Diastolic Length 2C 6.9 cm LV Systolic Length 2C 6.5 cm LA Volume 90.4 cm??? 18 - 58 / 22 - 52 cm??? LA Volume Index 43.6 cm???/m??? 16 - 28 cm???/m??? M-MODE Aortic Root Diameter MM 2.2 cm DOPPLER AV Peak Velocity 273.9 cm/s AV Peak Gradient 30.0 mmHg AV Mean Gradient 14.2 mmHg AV Velocity Time Integral 52.2 cm AI Peak Velocity 335.0 cm/s AI Peak Gradient 44.9 mmHg AI Pressure Half Time 584.9 ms LVOT Peak Velocity 145.0 cm/s LVOT Peak Gradient 8.4 mmHg LVOT Velocity Time Integral 29.0 cm LVOT Stroke Volume 95.8 cm??? LVOT Stroke Volume Index 49.4 ml/m??? LVOT Cardiac Index 2309.0 cm???/min???m??? AV Area Cont Eq vti 1.8 cm??? AV Area Cont Eq pk 1.8 cm??? Mitral E Point Velocity 104.4 cm/s Mitral A Point Velocity 124.8 cm/s Mitral E to A Ratio 0.8 MV Deceleration Time 329.1 ms FINDINGS Left Ventricle Left ventricular ejection fraction is estimated at 55-60 %. Moderately increased septal wall thickness. Moderately increased posterior wall thickness. Moderately increased left ventricular diastolic diameter. Mildly increased left ventricular diastolic volume. No obvious regional wall motion abnormalities. Right Ventricle Normal right ventricular size. Right ventricular systolic pressure within normal limits. Right Atrium Right atrium not well visualized. Left Atrium Severely increased left atrial volume. Moderately increased left atrial area. Mitral Valve Mitral valve thickened. Mild mitral annular calcification. Mild mitral regurgitation. No evidence for mitral valve prolapse. No mitral stenosis. Aortic Valve Normally functioning bioprosthetic aortic valve without stenosis with a peak velocity of 2.7 m/s, peak gradient 30 mmHg, mean gradient 14 mmHg, and estimated aortic valve area of 1.8 cm???. Mild paravalvular aortic regurgitation. Mild valvular regurgitation Tricuspid Valve Structurally normal tricuspid valve. No tricuspid stenosis, regurgitation or prolapse. Pulmonic Valve Structurally normal pulmonic valve. Mild pulmonic regurgitation. Pericardium No pericardial or pleural effusion. Aorta Normal size aortic root and proximal ascending aorta. CONCLUSIONS LVH with preserved systolic function Bioprosthetic aortic valve with a peak gradient of 30 mmHg and mean gradient of 14 mmHg Very mild regurgitation Previewed by: Dr. Joao Martin MD (Electronically Signed) Final Date: 28 September 2023 16:01
[2023-09-28] MEDS: ceFAZolin 1,000 MG in SODIUM CHLORIDE 0.9% IRRIG BTL 250 ML IRRIGATION ONE (16:25)
[2023-09-28] MEDS ORDERED: ACETAMINOPHEN TAB 325 MG TAB PO PRN (16:45)
--- NOTE | 2023-09-28 16:49 | P.PCN ---
Description of Procedure: CARDIOLOGY PROCEDURE NOTE Hot End Operator: Dr. Theron Hernandez Procedure performed: Insertion dual chamber permanent pacemaker Site: Left subclavian Indications: Complete heart block without reversible cause Complications: None Blood Loss: Minimal Description of Procedure: After the risks, benefits, and alternatives of the above-mentioned procedure was explained in detail with the patient, informed consent was obtained. The patient was taken to the cardiac catheterization suite where the left subclavian area was sterily prepped and draped in the usual fashion. One percent lidocaine was used to anesthetize the left subclavian area. Twenty milliliters of Isoview 370 contrast was injected into the left antecubital vein to allow for direct visualization of the left subclavian vein under fluoroscopy. A 1.5 inch incision was made utilizing a #15 blade in the left subclavian site. Hemostasis was made complete. Electrocautery along with digital blunt dissection was utilized to dissect to the level of the pectoralis muscle fascia and create a pocket large enough to accommodate the generator. A thin walled micro puncuture needle was used to cannulate the left subclavian vein. A guide-wire was inserted through the needle into the vascular lumen under fluoroscopic guidance. The needle was removed. Another thin walled micr puncture needle was used to again cannulate the left subclavian vein. A guide-wire was inserted through the needle into the vascular lumen under fluoroscopic guidance. The needle was removed and both guide-wires were attached to the field. A venous sheath and dilator were advanced over the guidewire into the vascular lumen under fluoroscopic guidance. The dilator and guidewire were then removed. A right ventricular bipolar lead was inserted into the sheath and advanced under fluoroscopic guidance into the right ventricle under fluoroscopic guidance. Adequate sensing and pacing thresholds were achieved and the lead was screwed into place in the RV apex. The sheath was then torn away. The lead collar was advanced and anchored into place utilizing #0 silk suture. Next, another venous sheath and dilator were advanced under fluoroscopic guidance into the vascular lumen over the guidewire. After removal of the dilator and guidewire, a right atrial bipolar lead was inserted into this sheath and advanced under fluoroscopic guidance into the right atrium. The lead was positioned into the right atrial appendage. Adequate sensing and pacing thresholds were then achieved with patient being in Aflutter at the time and the lead was screwed into place. The sheath was then torn away. The lead collar was advanced and anchored into place utilizing #0 silk suture. The leads were then inserted into the appropriate position into the generator. They were then secured with the setscrew provided. The leads and generator were inserted into the pocket with the leads posterior. The subcutaneous tissue was approximated utilizing #2.0 and 3.0 vicryl in an interrupted stitch fashion. The dermal layer was approximated utilizing #4.0 vicryl. The area was cleansed with sterile saline and dried. A sterile 4x4 dressing was applied and the patient was transferred to the post catheterization holding area in stable and satisfactory condition. The patient tolerated the procedure well. Generator Data Intercell Connector Placer: Wise Data.Media Brand: [id number] Marlene XT DR MRI Model #: W1DR01 Serial#: [id number] Right Atrial Bipolar Lead Data: Type: Active fixation lead Intercell Connector Placer: Wise Data.Media Model#: 5076-45 Serial Number: [id number] Right Ventricular Bipolar Lead Data: Type: Active fixation lead Intercell Connector Placer: Medtronic Model #: 5076-52 Serial #: [id number] Stimulation Thresholds: Right atrial bipolar lead pacing and sensing thresholds Voltage: 1.5 Impedance: 779 ohms P-wave sensin.6 mV Right Ventricular bipolar lead pacing and sensing thresholds Pulse Width: 0.4ms Voltage: 0.5 volts Impedance: 589 ohms R-wave sensin.9 mV Parameter Setting: Pacing mode is DDDR Lower rate 60 bpm Upper rate 130 bpm Impressions: 1. Successful implantation of a dual chamber permanent pacemaker in the left pectoral site. Plan: 1. Routine post procedure care will be instituted as well as outpatient follow- up surveillance.
--- NOTE | 2023-09-28 19:34 | XR ---
EXAMINATION: XR chest 1V portable 09/28/2023 7:14 PM CLINICAL INDICATION: PHH; Lead placement check TECHNIQUE: AP upright portable CXR COMPARISON: 09/28/2023 at 5:16 AM FINDINGS: The soft tissues overlying the chest are prominent and the x-ray technique is relatively underpenetra joao. Since the prior study a cardiac pacemaker has been placed. There is no pneumothorax or pleural effusi on. The lungs are clear. The cardiac silhouette appears mildly enlarged, unchanged. The skeletal stru ctures and soft tissues are negative for acute findings. IMPRESSION: No acute radiographic process.
--- NOTE | 2023-09-29 07:47 | XR ---
EXAMINATION TYPE: XR chest 1V portable DATE OF EXAM: 09/29/2023 COMPARISON: 09/28/2023 HISTORY: Postcardiac surgery TECHNIQUE: Single frontal view of the chest is obtained. FINDINGS: Aortic valve replacement with multi lead pacemaker is leads. Arthropathy of the shoulders. Degenerative changes spine. Lungs are clear. Heart is enlarged. No overt failure. IMPRESSION: Cardiomegaly.
[2023-09-29 08:42] VITALS: BP 128/57; PULSE 66; RESP 20; TEMP 98.1
[2023-09-29 10:18] LABS: HGB 8.7 gm/dL (11.4-16.0); Hypochromasia Slight; MCH 27.3 pg (25.0-35.0); MCV 88.1 fL (80.0-100.0); Mean Platelet Volume 7.9; Platelet Count 163 k/uL (150-450); RBC 3.17 m/uL (3.80-5.40); RDW 15.1 % (11.5-15.5); WBC 6.5 k/uL (3.8-10.6)
[2023-09-29 10:41] LABS: African American GFR (CKD) >90 (>60 ml/min/1.73 sqM); Anion Gap 2 mmol/L; Blood Urea Nitrogen 15 mg/dL (7-17); Calcium 8.5 mg/dL (8.4-10.2); Carbon Dioxide 25 mmol/L (22-30); Chloride 110 mmol/L (98-107); Glucose 98 mg/dL (74-99); Non-African American GFR(CKD) >90 (>60 ml/min/1.73 sqM); Potassium 3.8 mmol/L (3.5-5.1); Sodium 137 mmol/L (137-145)
--- NOTE | 2023-09-29 11:51 | P.DS ---
Providers Date of admission: 09/27/23 05:33 Expected date of discharge: 09/29/23 Attending physician: Theron Hernandez DO Consults: 09/22/23 14:35 Consult to Anesthesia Routine Consulting Provider: Anesthesia,Services Consult Reason/Comments: Cardiac Surgery Pre-Op 09/27/23 08:51 Consult Physician Routine Consulting Provider: Danie Major Consult Reason/Comments: TAVR Do you want consulting provider notified?: Already Contacted Primary care physician: Stated None Hospital Course: MEDICAL HISTORY: Calcified aortic valve with severe symptomatic aortic valve stenosis, NYHA class II Complete heart block without reversible cause History of hypertension Hyperlipidemia MARLINE Hypothyroid Arthritis Remote history of pneumonia Lifelong nonsmoker PROCEDURE: 1. Percutaneous aortic valve implantation using a 29 mm Evolute FX under BRENDAN and fluoroscopy guidance 2. Transesophageal echocardiography performed by anesthesia 3. Ultrasound-guided access and repair of left femoral artery access site by Perclose closure device 4. Placement of temporary pacemaker wire 5. Aortic root angiography 6. Pre-balloon aortic valvuloplasty with a 20 mm True balloon 7. Post-balloon aortic valvuloplasty with a 22 mm True balloon 8. Insertion Medtronic dual chamber permanent pacemaker HISTORY OF PRESENT ILLNESS: This is a 78-year-old female who follows on an outpatient basis with Dr. Ortega for primary care and Dr. Rodriguez for cardiology. She has a known history of severe aortic stenosis and has not really been symptomatic except fatigue but she has not been ambulatory much as she needs a hip replacement due to severe arthritis. She had been referred to structural heart clinic for evaluation for transcatheter aortic valve replacement after heart catheterization and transesophageal echocardiogram were completed. Echocardiography demonstrated systolic function with EF 55-60%, aortic valve area 0.6 cm with a peak/mean gradient 105/56 mmHg. Heart catheterization sh owed no significant coronary artery disease. After workup was completed STS risk score was calculated along with incremental risk and the patient was felt to be low risk for surgical aortic valve replacement, however the patient was not willing to undergo surgical aortic valve replacement therefore transcatheter aortic valve replacement was recommended. The usual course of TAVR was discussed in detail the patient, risks and benefits were reviewed, shared decision making between cardiology, surgery, and the patient/family took place, and the patient consented to proceed with the procedure. HOSPITAL COURSE: The patient was brought to the hospital on 09/27/23, was taken to the extended stay area, prepared in the usual fashion, and subsequently taken to the cardiac catheterization laboratory where Dr. Hernandez and Dr. Major completed TAVR procedure under general anesthesia with fluoroscopy and BRENDAN. The valve was deployed under rapid ventricular pacing and proceeded without event. At the end of the procedure there was no significant gradient, hemodynamics were felt to be acceptable, and there was no evidence of significant perivalvular leak. Upon completion of the procedure the patient was extubated and was transferred to the cardiovascular intensive care unit where she was recovered and monitored hemodynamically. She did develop complete heart block and was requiring temporary pacing, which was not completely unexpected as she had a preop rhythm of sinus bradycardia with right bundle branch block, and on postop day #1 a permanent pacemaker was placed by Dr. Hernandez. The next morning her pacemaker was interrogated and was functioning appropriately, her oxygen was titrated down, she was tolerating oral diet, her pain was controlled, follow-up TTE demonstrated normal left ventricular systolic function with EF 55 to 60%, mild perivalvular leak, and she was ready to be discharged to home on postoperative day #2. She received written and verbal instruction regarding her medications, activity restrictions, signs and symptoms requiring physician notification, and follow-up appointments. Patient Condition at Discharge: Stable Plan - Discharge Summary Discharge Rx Participant: No New Discharge Prescriptions: New Sennosides-Docusate Sodium [Senokot-S] 2 each PO HS PRN tab PRN Reason: Constipation Calcium Carbonate [Tums] 500 mg PO QID PRN tab PRN Reason: Heartburn Acetaminophen Tab [Tylenol] 650 mg PO Q4HR PRN #0 tab PRN Reason: Fever And/ Or Mild Pain (1-3) Continue Levothyroxine Sodium [Levoxyl] 125 mcg PO DAILY Atorvastatin Calcium [Lipitor] 40 mg PO HS Multivitamins, Thera [Multivitamin (formulary)] 1 tab PO HS Oxybutynin ER [Ditropan XL] 10 mg PO HS Furosemide [Lasix] 40 mg PO DAILY #30 tablet amLODIPine [Norvasc] 5 mg PO HS Meclizine [Antivert] 12.5 mg PO DAILY PRN PRN Reason: DIZZINESS Vitamin B Complex 1 each PO HS Golo Diet Pills 1 tab PO TID Aspirin 81 mg PO DAILY Discharge Medication List Atorvastatin Calcium [Lipitor] 40 mg PO HS 03/24/14 [History] Levothyroxine Sodium [Levoxyl] 125 mcg PO DAILY 03/24/14 [History] Multivitamins, Thera [Multivitamin (formulary)] 1 tab PO HS 03/24/14 [History] Oxybutynin ER [Ditropan XL] 10 mg PO HS 07/02/17 [History] Furosemide [Lasix] 40 mg PO DAILY #30 tablet 07/04/17 [Rx] amLODIPine [Norvasc] 5 mg PO HS 09/24/20 [History] Golo Diet Pills 1 tab PO TID 07/27/23 [History] Meclizine [Antivert] 12.5 mg PO DAILY PRN 07/27/23 [History] Vitamin B Complex 1 each PO HS 07/27/23 [History] Aspirin 81 mg PO DAILY 08/01/23 [History] Acetaminophen Tab [Tylenol] 650 mg PO Q4HR PRN #0 tab 09/29/23 [Rx] Calcium Carbonate [Tums] 500 mg PO QID PRN tab 09/29/23 [Rx] Sennosides-Docusate Sodium [Senokot-S] 2 each PO HS PRN tab 09/29/23 [Rx] Follow up Appointment(s)/Referral(s): Kian Ortega MD [STAFF PHYSICIAN] - As Needed Miki Rodriguez MD [STAFF PHYSICIAN] - 10/04/23 8:15 am (Your appointment on October 03 is for a groin check with Dr. Rodriguez as well as a pacemaker check. You have a 30-day post TAVR echo and appointment with Dr. Rodriguez on 12/07/23 @ 3:15 pm, and a 1 year post TAVR echo and appointment with Dr. Rodriguez on 08/28/24 @ 1 pm) Clinic,Structural Heart [NON-STAFF] - 12/07/23 2:45 pm (You have an appointment at the valve clinic 12/07/23 @ 2:45 pm for 30 day post TAVR. You also have a 1 year post TAVR appointment at the valve clinic 08/28/24 @ 12:30 pm) Ambulatory/Diagnostic Orders: Basic Metabolic Panel [LAB.AMB] Location: None Selected Basic Metabolic Panel [LAB.AMB] Location: None Selected Complete Blood Count w/diff [LAB.AMB] Location: None Selected Complete Blood Count w/diff [LAB.AMB] Location: None Selected Activity/Diet/Wound Care/Special Instructions: DISCHARGE INSTRUCTIONS: 1. No driving for 1 week, or until physician gives their ok. 2. No lifting, pushing, or pulling more than 5-10 pounds for 1 week. 3. Hold both groins when you cough or sneeze for the next 2 weeks. Bruising is common, but report increased swelling, pain or fever >101F 4. Shower daily. No pool, hot tub, or bathtub for 1 week 5. No powders, lotions, ointments on incisions. 6. No straining, including for bowel movements. Use stool softner if necessary 7. Stairs are not an issue. Go slowly, using handrail and take 1 step at a time. Ambulate several times daily 8. Continue pain control per as needed orders. 9. Take only the medications listed on your discharge form 10. Eat low salt (limited to 2 grams or 2000 milligrams) daily, avoid adding salt, avoid canned/processed foods 11. Take your weight daily in the morning and record, bring with you to your follow up appointments 12. Keep all follow up appointments. You will need a valve clinic appointment at 30 days and 1 year post procedure for follow up 13. You have been referred to and are expected to begin Cardiac Rehab in approximately 4 weeks. 14. You will need antibiotics prior to any dental work, including cleanings, and any surgeries to prevent Endocarditis (bacterial infection in your heart) For any questions or concerns please call your valve coordinators: Hiral or Devin @ PATIENT EDUCATION MATERIAL Instructions following a heart rhythm device implant. 1. Keep dressing DRY for 5 DAYS. You may cover the area with Saran or Cling Wrap, prior to a shower. 2. The dressing will be removed in the Device Clinic at [facility]. Absorbable sutures were used to close the wound. 3. Avoid raising the left arm above the shoulder level. 4 week restriction 4. Avoid arm movements, like backscratching, rubbing the head, or pulling on a cord. 4 weeks restriction 5. Gentle range of motion movements of the shoulder, closest to the incision should be performed to avoid a frozen shoulder. (Pendulum exercises of the shoulder) 6. The opposite arm may be used freely. 7. Avoid driving for 7 days. 8. Avoid activities such as golfing, swimming, weed whacking, lifting more than 10 pounds weight, bowling, gymnastics and weight training/lifting. (6 weeks restriction) 9. Activities such as wood chopping with an axe, pull-ups in the gymnasium, power lifting, arc-welding, being close to home induction cooktops will always be a problem. 10. Arm sling is only a reminder not to raise the arm above the head. You do not need to keep the arm completely immobilized. Your free to move the arm and use it and for normal activities. In case of any problems, please call [facility], [place], @ [phone], Attention: Device Clinic Discharge Disposition: HOME SELF-CARE
== END 2023-09-29 11:27 | disposition home or self-care (01) | DRG 267 ==
LOC: 2ORMAIN 05:33 → 2SICU 09:17 → 3SCARD 09-28 21:28
PROVIDERS: ADMIT Internal Medicine; ATTEND Internal Medicine
PROC: 5A1223Z Performance of Cardiac Pacing, Continuous (ICD-10-PCS; 2023-09-27)
PROC: B3101ZZ Fluoroscopy of Thoracic Aorta using Low Osmolar Contrast (ICD-10-PCS; 2023-09-27)
PROC: 02RF38Z Replacement of Aortic Valve with Zooplastic Tissue, Percutaneous Approach (ICD-10-PCS; principal; 2023-09-27 07:30)
PROC: B24BZZ4 Ultrasonography of Heart with Aorta, Transesophageal (ICD-10-PCS; 2023-09-27 07:30)
PROC: 0JH606Z Insertion of Pacemaker, Dual Chamber into Chest Subcutaneous Tissue and Fascia, Open Approach (ICD-10-PCS; 2023-09-28)
PROC: 02H63JZ Insertion of Pacemaker Lead into Right Atrium, Percutaneous Approach (ICD-10-PCS; 2023-09-28)
PROC: 02HK3JZ Insertion of Pacemaker Lead into Right Ventricle, Percutaneous Approach (ICD-10-PCS; 2023-09-28)
DX: I35.0 Nonrheumatic aortic (valve) stenosis (principal); Z00.6 Encounter for examination for normal comparison and control in clinical research program; I44.2 Atrioventricular block, complete; E66.01 Morbid (severe) obesity due to excess calories; I35.8 Other nonrheumatic aortic valve disorders; I10 Essential (primary) hypertension; E03.9 Hypothyroidism, unspecified; Z68.37 Body mass index [BMI] 37.0-37.9, adult; G47.33 Obstructive sleep apnea (adult) (pediatric); E78.5 Hyperlipidemia, unspecified; M16.0 Bilateral primary osteoarthritis of hip; M17.0 Bilateral primary osteoarthritis of knee; Z82.49 Family history of ischemic heart disease and other diseases of the circulatory system; Z79.890 Hormone replacement therapy; Z79.899 Other long term (current) drug therapy; Z88.8 Allergy status to other drugs, medicaments and biological substances
CPT/HCPCS: 33208; 33210; 33361; 71045; 80048; 80053; 82330; 83735; 85025; 85027; 93306; 93312; 93320; 93325

== ENCOUNTER → 2023-10-17 | Outpatient (CLI) | payer MEDICARE ==
[2023-10-17 11:16] LABS: Partial Thromboplastin Time 23.9 sec (22.0-30.0); Prothrombin Time 10.9 sec (10.0-12.5)
[2023-10-17 15:40] LABS: ALT 32 U/L (8-44); AST 31 U/L (13-35); Albumin 4.1 g/dL (3.8-4.9); Albumin/Globulin Ratio 1.37 Ratio (1.60-3.17); Alkaline Phosphatase 101 U/L (41-126); BUN/Creat Ratio 37.86 Ratio (12.00-20.00); Blood Urea Nitrogen 26.5 mg/dL (9.0-27.0); Calcium 9.7 mg/dL (8.7-10.3); Carbon Dioxide 28.3 mmol/L (21.6-31.8); Chloride 106 mmol/L (96-109); Glucose 90 mg/dL (70-110); Potassium 4.8 mmol/L (3.5-5.5); Sodium 144 mmol/L (135-145); Total Bilirubin 0.3 mg/dL (0.3-1.2); Total Protein 7.1 g/dL (6.2-8.2)
[2023-10-17 15:41] LABS: HCT 32.2 % (37.2-46.3); HGB 9.7 g/dL (12.0-15.0); MCH 26.6 pg (27.0-32.0); MCHC 30.1 g/dL (32.0-37.0); MCV 88.2 FL (80.0-97.0); Mean Platelet Volume 9.9 FL (9.5-12.2); NRBC Per 100 WBC 0 X 10*3/uL (0.00-0.01); Platelet Count 251 X 10*3/uL (140-440); RBC 3.65 X 10*6/uL (4.10-5.20); RDW 15.1 % (11.5-14.5); WBC 5.75 X 10*3/uL (4.50-10.00)
== END | disposition home or self-care (01) ==
LOC: LABPAT 09:52
PROVIDERS: ATTEND Orthopaedic Surgery
DX: Z01.812 Encounter for preprocedural laboratory examination (principal); M16.12 Unilateral primary osteoarthritis, left hip; Z22.322 Carrier or suspected carrier of Methicillin resistant Staphylococcus aureus
CPT/HCPCS: 36415; 80053; 83036; 85027; 85610; 85730; 86850; 86900; 86901; 87070

== ENCOUNTER → 2024-02-12 | Outpatient (CLI) | payer MEDICARE ==
[2024-02-12 10:29] LABS: Partial Thromboplastin Time 24.6 sec (22.0-30.0); Prothrombin Time 10.7 sec (10.0-12.5)
[2024-02-12 15:46] LABS: ALT 19 U/L (8-44); AST 23 U/L (13-35); Albumin 4.2 g/dL (3.8-4.9); Alkaline Phosphatase 85 U/L (41-126); BUN/Creat Ratio 43.86 Ratio (12.00-20.00); Blood Urea Nitrogen 30.7 mg/dL (9.0-27.0); Calcium 9.5 mg/dL (8.7-10.3); Chloride 103 mmol/L (96-109); Glucose 113 mg/dL (70-110); Sodium 141 mmol/L (135-145); Total Bilirubin 0.3 mg/dL (0.3-1.2); Total Protein 7.2 g/dL (6.2-8.2)
[2024-02-12 17:13] LABS: HCT 37.7 % (37.2-46.3); HGB 12.2 g/dL (12.0-15.0); MCHC 32.4 g/dL (32.0-37.0); MCV 86.7 FL (80.0-97.0); Mean Platelet Volume 10.2 FL (9.5-12.2); NRBC Per 100 WBC 0 X 10*3/uL (0.00-0.01); Platelet Count 229 X 10*3/uL (140-440); RBC 4.35 X 10*6/uL (4.10-5.20); RDW 15.9 % (11.5-14.5); WBC 5.08 X 10*3/uL (4.50-10.00)
== END | disposition home or self-care (01) ==
LOC: LABPAT 02-05 09:22
PROVIDERS: ATTEND Orthopaedic Surgery
CPT/HCPCS: 36415; 80053; 83036; 85027; 85610; 85730; 86850; 86900; 86901; 87070

== ENCOUNTER 2024-02-23 05:42 | Observation (INO) | payer MEDICARE ==
[2024-02-23] MEDS ORDERED: TRANEXAMIC 1,000 MG/100ML-NACL 1,000 MG in SALINE 1 100ML.BAG IV PRN (06:00)
[2024-02-23] MEDS ORDERED: TRANEXAMIC 1,000 MG/100ML-NACL 1,000 MG in SALINE 1 100ML.BAG IVPB PRN (06:00)
[2024-02-23] MEDS: ACETAMINOPHEN TAB 500 MG TAB PO PRN (08:53)
[2024-02-23] MEDS: DOCUSATE 100 MG CAP PO PRN (08:53)
[2024-02-23] MEDS: oxyCODONE ER 10 MG TAB.ER.12H PO PRN (08:53)
[2024-02-23] MEDS: LACTATED RINGERS 1,000 ML IV SCH (09:29)
[2024-02-23] MEDS: IV FLUID CONTINUATION 1,000 ML IV ONE (09:29)
[2024-02-23] MEDS: FAMOTIDINE 20 MG/2 ML VIAL IVP PRN (09:30)
[2024-02-23] MEDS: ONDANSETRON 4 MG/2 ML VIAL IVP PRN ×2 (09:30→16:07)
[2024-02-23] MEDS: KETOROLAC 15 MG/ML 1 ML VIAL IVP PRN (09:30)
[2024-02-23] MEDS: DEXAMETHASONE SOD PHOSPHATE 10 MG/ML 1 ML VIAL IV PRN (09:31)
[2024-02-23] MEDS: MIDAZOLAM 2 MG/2 ML VIAL IV PRN (09:49)
--- NOTE | 2024-02-23 10:09 | P.ANPRN ---
Procedure Note - Anesthesia - Nerve Block Performed Left Basil Single Time Out Performed: Yes (0940) Date of Procedure: 02/23/24 Procedure Start Time: 09:45 Procedure Stop Time: 09:50 Location of Patient: PreOp Indication: Acute Post-Operative Pain, Requested by Surgeon Sedation Type: Sedate with meaningful contact maintained Preparation: Sterile Prep, Sterile Dressing Position: Supine Catheter: None Needle Types: Pajunk Needle Gauge: 21 Ultrasound used to visualize needle placement: Yes Ultrasound used to observe medication spread: Yes Injectate: 0.5% Ropivacaine (see comment for volume) (20 ml of 0.5% Ropivacaine mixed with 4 mg of dexamethasone) Blood Aspirated: No Pain Paresthesia on Injection Noted: No Resistance on Injection: Normal Image Stored and Saved: Yes Events: Uneventful and Well Tolerated
--- NOTE | 2024-02-23 10:12 | P.ANPRN ---
Procedure Note - Anesthesia - Invasive Line Right Central Line Time Out Performed: Yes (1030) Date of Procedure: 02/23/24 Time of Procedure: 10:35 Location of Patient: PreOp Preparation: Sterile Prep, Sterile Dressing Arterial Line Location: Radial Ultrasound Used: No Purpose - Visualization and Identification of Vasculature: No Needle Guage: 20G Image Stored and Saved: No Narrative: Invasive line placement per sterile protocol utilized.20G arrow catheter with one 1 attempt by the UTILITY BILL COLLECTION CLERK
[2024-02-23] MEDS ORDERED: LIDOCAINE 1% INJ 10MG/ML (20 ML MDV) ONE (10:27)
[2024-02-23] MEDS ORDERED: NEOSTIGMINE 1 MG/ML 10 ML VIAL ONE (10:27)
[2024-02-23] MEDS ORDERED: fentaNYL (PF) 50 MCG/ML 2 ML AMP ONE (10:27)
[2024-02-23] MEDS ORDERED: SUCCINYLCHOLINE CHLORIDE 200 MG/10 ML VIAL IV ONE (10:27)
[2024-02-23] MEDS ORDERED: GLYCOPYRROLATE 0.2 MG/ML 2 ML VIAL ONE (10:27)
[2024-02-23] MEDS ORDERED: PROPOFOL 10 MG/ML 20 ML VIAL IV ONE (10:27)
[2024-02-23] MEDS ORDERED: TRANEXAMIC 1,000 MG/100ML-NACL PREMIX BAG ONE (10:27)
[2024-02-23] MEDS ORDERED: ROPIVACAINE 5 MG/ML 30 ML VIAL ONE (10:27)
[2024-02-23] MEDS ORDERED: PHENYLEPHRINE 10 MG/ML VIAL ONE (10:27)
[2024-02-23] MEDS ORDERED: ROCURONIUM 10 MG/ML (5 ML VIAL) IV ONE (10:27)
[2024-02-23] MEDS: ROPIVACAINE/EPI/CLONIDINE/KET 50 ML SYRINGE MISCELLANE PRN (11:08)
[2024-02-23] MEDS: LACTATED RINGERS 1,000 ML IV ONE (12:20)
[2024-02-23] MEDS: VANCOMYCIN 1,000 MG VIAL MISCELLANE ONE (12:24)
[2024-02-23] MEDS ORDERED: HYDROcodone/APAP 5-325MG 1 EACH TAB PO PRN (12:40)
[2024-02-23] MEDS ORDERED: ACETAMINOPHEN TAB 325 MG TAB PO PRN (12:40)
[2024-02-23] MEDS ORDERED: MAGNESIUM HYDROXIDE 2,400 MG/30 ML CUP PO PRN (12:40)
[2024-02-23] MEDS ORDERED: HYDROmorphone 0.5 MG/0.5 ML SYRINGE IVP PRN ×3 (12:40)
[2024-02-23] MEDS ORDERED: NALOXONE 0.4 MG/ML 1 ML VIAL IV PRN (12:40)
--- NOTE | 2024-02-23 13:03 | P.OP ---
Date of Procedure: 02/23/24 Preoperative Diagnosis: 1. Severe left hip osteoarthritis 2. BMI 37.6 Postoperative Diagnosis: Same Procedure(s) Performed: 1. Left direct anterior total hip arthroplasty 2. Application of negative pressure incisional wound VAC < 50 sq cm, incision measuring 15 cm, left hip Implants: 1. Zachary Trident II Acetabular Cup, Size #46 2. [place] Accolade C Size # 3 Femoral Stem, High Offset 3. Dual Mobility OD 36 mm, ID 22.2 mm, +0 neck Anesthesia: OPAL, regional Surgeon: Gustavo Bey Digital Photographic Printer #1: Andrew Cedeño Estimated Blood Loss (ml): 300 IV fluids (ml): 800 Pathology: none sent Condition: stable Disposition: PACU Indications for Procedure: I had a long discussion with the patient in the office on the potential risks and complications of an elective total hip replacement through a direct anterior approach. Risks discussed include, but are certainly not limited to, risks from anesthesia, superficial infection requiring local wound care or antibiotics, deep luis-prosthetic joint infection and the treatment required to eradicate infection, intraoperative fracture, postoperative periprosthetic fracture, damage to local blood vessels or nerves particularly the lateral femoral cut aneous nerve, delayed wound healing requiring local wound care or possibly surgical debridement, hip dislocation, leg length discrepancy, soft tissue irritation around the total hip implant such as iliopsoas tendinitis or trochanteric bursitis, wear and osteolysis from the implants, squeaking or audible noises, groin pain, thigh pain, heterotopic ossification, stiffness, aseptic loosening of the implants, dissatisfaction with surgical outcome, need for revision surgery, DVT, PE, swelling of the operative extremity, acute coronary event, stroke, failure to thrive, and possibly loss of life or limb. The patient understands that while these are the most common complications after an elective hip replacement there are certainly other less common complications possible. They were given ample time to ask questions regarding the potential complications of a hip replacement. Following our discussion the patient provided their verbal and written consent to go forward with an elective total h ip replacement. Description of Procedure: The patient was identified in the preoperative holding area and the correct hip was marked with my initials. I reviewed the procedure and consent with the patient. All of their questions were answered. The patient was then brought back into the operating room by anesthesia. While on the [facility] anesthesia was administered by the anesthesia team. Preoperative antibiotics and tranexamic acid were also given. After the patient was under anesthesia I examined their ankles to determine their preoperative leg length discrepancy. The skin over the anterior aspect of the hip was shaved to remove hair over the site of planned incision. Both feet and ankles were padded with webril and boots for the [place] were applied. The patient was then carefully transferred onto the [place] table. A perineal post was immediately placed. The arms were placed on arm holders and were well-padded. Both boots were secured to the spars on the [place] table. The patient was positioned so that the pelvis was centered over the post. Nonsterile drapes were applied. A timeout was performed identifying the correct patient, operative extremity, and procedure. At this point fluoroscopy was brought in to take preoperative images of the pelvis and operative hip. Using the standing AP pelvis from the office as a template, a comparable image w as obtained with fluoroscopy. A metallic bar was used to create a bi-ischial line for use as a reference to leg length adjustments during the procedure. Global offset was also measured on both the operative and nonoperative leg. Fluoroscopy was then brought out and a pre-scrub using a chlorhexidine scrub brush was performed. The operative limb was then prepped and draped in the standard sterile fashion. An anterior longitudinal incision was made lateral and distal to the ASIS. The skin and subcutaneous tissues were incised sharply. The underlying tensor fascia was identified and incised in its midportion. The fascia was dissected free from the underlying muscle and the muscle belly was retracted. A blunt tipped cobra retractor was placed over the superior neck under the muscle fibers of the gluteus minimus. The deep enveloping fascia of the tensor was incised. The anterior leash of vessels were then identified and cauterized. The fascia between the rectus and the capsule was then incised and the pre-capsular fat was excised. A second Cobra was placed inferior to the neck. The interval between the rectus and iliocapsularis and the hip capsule was developed and a retractor was placed carefully over the anterior rim of the acetabulum. A T-shaped anterior capsulotomy was performed. The superior capsular leaflet was left in place in the inferior capsular flap was excised. The Cobra retractors were placed intracapsularly. We then made a femoral neck osteotomy according to preoperative and intraoperative templating and confirmed the level of the osteotomy using fluoroscopic imaging. The femoral head was removed, passed off to the back table, and sized. The superior capsular flap was excised. Retractors were placed circumferentially exposing the acetabulum. We then circumferentially debrided the acetabulum free of labrum and osteophytes. The pulvinar was removed to fully visualize the cotyloid fossa. We then sequentially reamed to achieve peripheral fit and excellent bleeding subchondral bone. The socket was thoroughly irrigated. The acetabular component was impacted into the appropriate position using fluoroscopy to guide version, inclination, and depth of insertion taking care to have a comparable image of the AP pelvis to the standing image taken in the office. An excellent press-fit was achieved and final position was confirmed using fluoroscopy. The press fit was augmented with bony cancellus dome screws. The liner was then impacted into the socket. Attention was then turned to the femur. The remnant dorsal lateral capsule was excised. The short external rotators were visible and protected. A bone hook was used to confirm appropriate translation of the trochanter away from the acetabulum. The leg was then extended and adducted and the bone hook was used to elevate the femur for broaching. On inspection of the patient's proximal femur, they appeared to have poor bone quality so I elected to proceed with cemented fixation of the femoral component. A box osteotome and blunt tipped canal sound was then utilized to gain access to the femoral canal. We then sequentially broached the femur in appropriate anteversion until torsional stability was achieved and the implant was felt to have reached the appropriate size to allow trialing. The neck cut was brought flush to the trial broach with a calcar planar. A trial neck and head were then placed onto the broach and the hip was atraumatically reduced under direct visualization. External rotation to 90 was performed to assess stability. Fluoroscopy was brought in. An AP and lateral fluoroscopic image of the proximal femur was obtained to assess position and fill of the trial broach. An AP of the pelvis was then obtained and matched to the preoperative image taken. A bi-ischial bar was then placed and measurements were taken to assess changes in length and offset. The hip was then carefully dislocated, the proximal femur was exposed, and the trial implants were removed. The proximal femur was then prepared for cementing. The canal was thoroughly irrigated with pulsatile lavage to remove blood and marrow contents. A cement restrictor was placed to a depth just distal to the tip of the final implant. Epinephrine-soaked gauze was then packed into the proximal femur. 2 bags of cement were then mixed using a centrifuge and placed into a c ement gun. Anesthesia was notified that cementing was about to commence to make sure the patient was appropriately ventilated and hydrated. Once the cement had reached appropriate consistency, the cement gun was used to fill the canal in a retrograde fashion starting at the restrictor. Cement was then pressurized into the canal with a blue tipped test tube maker. The stem was then carefully introd uced into the cement taking care to guide the implant into appropriate version. The stem was held in position until the cement had fully set. All extra cement was removed while the cement was hardening. The trunnion was cleansed and the final head was tapped into place to engage the Amos taper. The acetabulum was irrigated and visualized to be free of debris. The hip was carefully reduced. Stability was checked clinically with external rotation to 90 and there was no evidence of instability. Final fluoroscopic images were taken. The wound was then thoroughly irrigated and soaked with a dilute Betadine rinse for 3 minutes. 3 L of sterile saline was irrigated through the wound using pulsatile lavage. Local anesthetic cocktail was injected into the soft tissues around the surgica l field. A deep drain was placed. The wound was then closed in layers. An incisional wound VAC was placed over the closed incision to help lower the risk of delayed wound healing and surgical site infection. A drain sponge was also applied. After connecting the wound VAC to it's power source, there was an excellent seal. The drapes were taken down and the patient was carefully transferred off of the [place] table. Following removal of the boots the leg lengths felt acceptable. The patient was then taken to recovery room having tolerated the procedure well. PLAN: The patient can weight-bear as tolerated on the operative extremity. 2 doses of postoperative antibiotics. DVT prophylaxis with aspirin 81 mg twice a day based on preoperative risk stratification. Physical therapy for gait training. Discontinue drain postoperative day #1 if output is less than 100 mL per shift.
--- NOTE | 2024-02-23 13:08 | XR ---
Intraoperative/procedural fluoroscopic services were provided for left total hip arthroplasty. Total fluoroscopy time is 27.1 seconds with a total of 7 submitted images to PACS. Total DAP 1.2253 Gycm2. Please see the operative note for further details. [facility], , 02/23/2024 1:05 PM
[2024-02-23] MEDS: HYDROmorphone 0.5 MG/0.5 ML SYRINGE IVP PRN (13:51)
--- NOTE | 2024-02-23 18:08 | P.HPIM ---
History of Present Illness H&P Date: 02/23/24 78 year old F with PMH of HTN, HLD, Hypothyroid, GERD, Urinary urgency presents to [facility] for elective [facility]. She underwent Left direct anterior total hip arthroplasty with Dr. Bey. [facility] consulted for medical management. Patient reports 6/10 pain in her L hip. Needs to urinate. No other complaints. General: non toxic, no distress, appears at stated age, obese Derm: no unusual rashes/lesions, warm Head: atraumatic, normocephalic, symmetric Eyes: EOMI, no lid lag, anicteric sclera ENT: Nose and ears atraumatic Neck: No cervical lymphadenopathy, trachea midline, supple Mouth: no lip lesion, mucus membranes moist Cardiovascular: Normal S1 S2. No murmurs Lungs: Clear to auscultation bilaterally, no accessory muscle use Ext: no gross muscle atrophy, no contractures Neuro: no gross focal neuro deficits Psych: Alert, oriented, appropriate affect Based on my assessment of this patient, this patient meets a high complexity level of care. HTN: Amlodipine 5 mg PO QHS. HLD: Lipitor 40 mg PO QHS. Hypothyroid: Synthroid 125 mcg PO QD. GERD: Protonix 20 mg PO QD. Urinary urgency: Oxybutynin 10 mg PO QHS. CODE STATUS: FULL CODE DVT Prophylaxis: ASA BID GI Prophylaxis: Protonix Designated medical POA if patient is not able to make medical decisions for them selves: I have reviewed the following recruiting consultant notes: Operative note. I have reviewed the results of the following tests: As above. I have ordered the following tests: Agree with CBC in the AM. I have discussed the care of this patient with the following independent historian: I have independently interpreted the following test below: I have discussed the management of this patient with the following physician: Past Medical History Past Medical History: Coronary Artery Disease (CAD), Eye Disorder, Hyperlipidemia, Hypertension, Osteoarthritis (OA), Pneumonia, Sleep Apnea/CPAP/BIPAP, Thyroid Disorder Additional Past Medical History / Comment(s): Aortic stenosis, heart murmor, "mild" glaucoma, varicose veins, overactive bladder, no CPAP used History of Any Multi-Drug Resistant Organisms: None Reported Past Surgical History: Cardiac Valve Replacement, Section, C holecystectomy, Heart Catheterization, Hysterectomy, Joint Replacement, Pacemaker, Tonsillectomy Additional Past Surgical History / Comment(s): x2, stephani knee replacem ent, COLONOSCOPY, TAVR September 2023 Past Anesthesia/Blood Transfusion Reactions: No Reported Reaction Additional Past Anesthesia/Blood Transfusion Reaction / Comment(s): no hx blood transfusion Type of Cardiac Device: Permanent Pacemaker Device Placement Date:: 2023 Past Psychological History: No Psychological Hx Reported Smoking Status: Never smoker Past Alcohol Use History: None Reported Past Drug Use History: None Reported - Past Family History Mother Family Medical History: Cancer Additional Family Medical History / Comment(s): leukemia Sister(s) Family Medical History: Cancer Additional Family Medical History / Comment(s): ovarian Father Family Medical History: Coronary Artery Disease (CAD) Medications and Allergies Home Medications Medication Instructions Recorded Confirmed Type Atorvastatin Calcium [Lipitor] 40 mg PO HS 03/24/14 02/23/24 History Levothyroxine Sodium [Levoxyl] 125 mcg PO DAILY 03/24/14 02/23/24 History Multivitamins, Thera [Multivitamin 1 tab PO HS 03/24/14 02/23/24 History (formulary)] Oxybutynin ER [Ditropan XL] 10 mg PO HS 07/02/17 02/23/24 History Furosemide [Lasix] 40 mg PO DAILY #30 tablet 07/04/17 02/23/24 Rx amLODIPine [Norvasc] 5 mg PO HS 09/24/20 02/23/24 History [place] Diet Pills 1 tab PO TID 07/27/23 02/23/24 History Meclizine [Antivert] 12.5 mg PO DAILY PRN 07/27/23 02/23/24 History Vitamin B Complex 1 each PO HS 07/27/23 02/23/24 History Acetaminophen Tab [Tylenol] 650 mg PO Q4HR PRN #0 tab 09/29/23 02/23/24 Rx Calcium Carbonate [Tums] 500 mg PO DAILY PRN 02/20/24 02/23/24 History Aspirin 81 mg PO BID #60 tab 02/23/24 Rx Docusate [Colace] 100 mg PO BID #60 capsule 02/23/24 Rx Doxycycline Monohydrate 100 mg PO BID #28 cap 02/23/24 Rx HYDROcodone/APAP 5-325MG [[place] 5] 1 - 2 each PO Q6HR PRN #48 tab 02/23/24 Rx Omeprazole 20 mg PO DAILY #30 tab 02/23/24 Rx Ondansetron [Zofran] 4 mg PO Q6HR PRN #30 tab 02/23/24 Rx Allergies Allergy/AdvReac Type Severity Reaction Status Date / Time levofloxacin [From Levaquin] AdvReac Nausea & Verified 02/23/24 08:39 Vomiting meperidine HCl [From Demerol] AdvReac Nausea & Verified 02/23/24 08:39 Vomiting Physical Exam Vitals: Vital Signs Temp Pulse Pulse Resp BP Pulse Ox 02/23/24 17:31 65 148/68 02/23/24 17:16 60 143/69 02/23/24 17:01 64 133/72 02/23/24 16:46 61 143/68 02/23/24 16:31 65 143/74 02/23/24 16:16 76 145/80 02/23/24 15:46 69 134/81 97 02/23/24 15:31 61 131/71 95 02/23/24 15:16 60 131/72 94 L 02/23/24 15:01 60 145/71 94 L 02/23/24 14:47 97.1 F L 65 16 135/71 96 02/23/24 14:25 62 14 145/60 97 02/23/24 14:10 60 16 138/58 97 02/23/24 13:55 61 14 131/61 97 02/23/24 13:40 59 L 16 134/63 95 02/23/24 13:25 60 16 129/56 95 02/23/24 13:11 59 L 16 143/63 93 L 02/23/24 12:56 97.4 F L 68 16 140/64 97 02/23/24 09:49 63 16 127/78 99 02/23/24 09:10 98.3 F 75 18 169/79 96 Intake and Output 02/23/24 02/23/24 02/23/24 06:59 14:59 22:59 Intake Total 1900 Output Total 300 Balance 1600 Intake: IV 1900 Output: Estimated Blood Loss 300 Other: Weight 93.2 kg Thrombosis Risk Factor Assmnt - Choose All That Apply Any of the Below Risk Factors Present?: Yes Each Factor Represents 1 point: Obesity (BMI >25), Varicose veins Other Risk Factors: Yes Each Risk Factor Represents 2 Points: Major surgery Each Risk Factor Represents 3 Points: Age 75 years or older Each Risk Factor Represents 5 Points: Elective major lower extremity arthoplasty Thrombosis Risk Factor Assessment Total Risk Factor Score: 12 Thrombosis Risk Factor Assessment Level: High Risk
[2024-02-23] MEDS: HYDROcodone/APAP 10-325MG 1 EACH TAB PO PRN (18:21)
[2024-02-23] MEDS: ASPIRIN 81 MG PO SCH (21:45)
[2024-02-23] MEDS: amLODIPine 5 MG TAB PO SCH (21:45)
[2024-02-23] MEDS: ATORVASTATIN 40 MG TAB PO SCH (21:45)
[2024-02-23] MEDS: SENNOSIDES-DOCUSATE SODIUM 1 EACH TAB PO SCH (21:46)
[2024-02-23] MEDS: DOXYCYCLINE 100 MG CAP PO SCH (21:47)
[2024-02-24] MEDS: SODIUM CHLORIDE 0.9% 1,000 ML IV SCH (00:18)
[2024-02-24] MEDS: FAMOTIDINE 20 MG TAB PO SCH (08:10)
[2024-02-24] MEDS: FUROSEMIDE 40 MG TAB PO SCH (08:10)
--- NOTE | 2024-02-24 08:34 | P.PN ---
Subjective Progress Note Date: 02/24/24 No acute events per nursing. The patient has some discomfort in her left hip but otherwise is doing well. Objective - Vital Signs Vital signs: Vital Signs Temp 97.5 F L 02/24/24 06:59 Pulse 59 L 02/24/24 06:59 Resp 19 02/24/24 06:59 BP 123/55 02/24/24 06:59 Pulse Ox 95 02/24/24 06:59 FiO2 Intake & Output 02/23/24 02/24/24 02/24/24 18:59 06:59 18:59 Intake Total 1900 50 Output Total 300 400 Balance 1600 -350 Weight 93.2 kg Intake: IV 1900 Intake, IV Titration 50 Amount Tranexamic 1,000 mg/100Ml 50 -NaCl 1,000 mg In Saline 1 100ml.bag @ 200 mls/hr IVPB ONCE PRN Rx#: [id number] Output: Urine 400 Estimated Blood Loss 300 Other: Voiding Method Bedpan # Voids 2 - Exam The patient is sitting up in bed. She is alert and able to answer questions. Her incisional wound VAC is in place with good seal. Femoral nerve function is intact. She is able to actively plantarflex and dorsiflex her ankle and her toes. Assessment and Plan Assessment: POD #1 status post left direct anterior total hip arthroplasty Plan: 1. Weight bear as tolerated on the operative extremity, up with assistance and a walker 2. DVT prophylaxis with aspirin 81 mg BID 3. 2 doses of post operative antibiotics 4. Leave surgical dressing in place 5. Internal medicine for luis-operative medical management 6. Physical therapy for gait training and mobilization 7. Dispo: Discharge home later today if passes PT and pain controlled otherwise will plan to keep her until tomorrow
--- NOTE | 2024-02-24 08:52 | P.PN ---
Subjective Progress Note Date: 02/24/24 78 year old F with PMH of HTN, HLD, Hypothyroid, GERD, Urinary urgency presents to [facility] for elective surgery. She underwent Left direct anterior total hip arthroplasty with Dr. Bey. [facility] consulted for medical management. 02/23 Patient was seen and examined. No acute events overnight. Urinating freely. No bowel movement not passing gas. Yet to work with PT. CBC pending. General: non toxic, no distress, appears at stated age, obese Derm: no unusual rashes/lesions, warm Head: atraumatic, normocephalic, symmetric Eyes: EOMI, no lid lag, anicteric sclera ENT: Nose and ears atraumatic Neck: No cervical lymphadenopathy, trachea midline, supple Mouth: no lip lesion, mucus membranes moist Cardiovascular: Normal S1 S2. systolic murmurs Lungs: Clear to auscultation bilaterally, no accessory muscle use Ext: no gross muscle atrophy, no contractures Neuro: no gross focal neuro deficits Psych: Alert, oriented, appropriate affect Based on my assessment of this patient, this patient meets a high complexity level of care. HTN: BP 123/55. Amlodipine 5 mg PO QHS. HLD: Lipitor 40 mg PO QHS. Hypothyroid: Synthroid 125 mcg PO QD. GERD: Protonix 20 mg PO QD. Urinary urgency: Oxybutynin 10 mg PO QHS. CODE STATUS: FULL CODE DVT Prophylaxis: ASA BID GI Prophylaxis: Protonix Designated medical POA if patient is not able to make medical decisions for themselves: I have reviewed the following systems security consultant notes: Ortho note. I have reviewed the results of the following tests: I have ordered the following tests: CBC pending. I have discussed the care of this patient with the following independent historian: I have independently interpreted the following test below: I have discussed the management of this patient with the following physician: Objective - Vital Signs Vital signs: Vital Signs Temp 97.5 F L 02/24/24 06:59 Pulse 59 L 02/24/24 06:59 Resp 19 02/24/24 06:59 BP 123/55 02/24/24 06:59 Pulse Ox 95 02/24/24 06:59 FiO2 Intake & Output 02/23/24 02/24/24 02/24/24 18:59 06:59 18:59 Intake Total 1900 50 Output Total 300 400 Balance 1600 -350 Weight 93.2 kg Intake: IV 1900 Intake, IV Titration 50 Amount Tranexamic 1,000 mg/100Ml 50 -NaCl 1,000 mg In Saline 1 100ml.bag @ 200 mls/hr IVPB ONCE PRN Rx#: [id number] Output: Urine 400 Estimated Blood Loss 300 Other: Voiding Method Bedpan # Voids 2
[2024-02-24 11:23] LABS: Basophils # (A) 0.01 X 10*3/uL (0.00-0.10); Basophils % (A) 0.1 %; Eosinophils # (A) 0.01 X 10*3/uL (0.04-0.35); Eosinophils % (A) 0.1 %; HCT 32.2 % (37.2-46.3); HGB 10.4 g/dL (12.0-15.0); Lymphocytes # (A) 1.91 X 10*3/uL (0.90-5.00); MCHC 32.3 g/dL (32.0-37.0); MCV 86.6 FL (80.0-97.0); Mean Platelet Volume 9.6 FL (9.5-12.2); Monocytes # (A) 0.76 X 10*3/uL (0.20-1.00); Monocytes % (A) 6.8 %; NRBC Per 100 WBC 0 X 10*3/uL (0.00-0.01); Neutrophils # (A) 8.48 X 10*3/uL (1.80-7.70); Neutrophils % (A) 75.6 %; Platelet Count 224 X 10*3/uL (140-440); RBC 3.72 X 10*6/uL (4.10-5.20); RDW 15.3 % (11.5-14.5); WBC 11.22 X 10*3/uL (4.50-10.00)
[2024-02-24] MEDS ORDERED: MECLIZINE 12.5 MG TAB PO PRN (11:27)
[2024-02-24] MEDS: LEVOTHYROXINE 125 MCG TAB PO SCH (11:32)
[2024-02-24] MEDS: OXYBUTYNIN 10 MG TAB.ER.24 PO SCH (21:18)
[2024-02-24] MEDS: MULTIVITAMINS, THERA 1 EACH TAB PO SCH (21:20)
--- NOTE | 2024-02-25 09:09 | P.PN ---
Subjective Progress Note Date: 02/25/24 Patient is doing relatively well this morning. No acute events per nursing. This morning she is complaining of isolated pain in her left hip. She has no other complaints. Objective - Vital Signs Vital signs: Vital Signs Temp 98.7 F 02/25/24 07:04 Pulse 63 02/25/24 07:04 Resp 20 02/25/24 07:04 BP 123/51 02/25/24 07:04 Pulse Ox 91 L 02/25/24 07:04 FiO2 Intake & Output 02/24/24 02/25/24 02/25/24 18:59 06:59 18:59 Intake Total 1000 Balance 1000 Intake: Intake, IV Titration 1000 Amount Sodium Chloride 0.9% 1, 1000 000 ml @ 100 mls/hr IV . Q10H [facility] Rx#:[id number] Other: Voiding Method Bedpan Bedpan # Voids 1 - Exam Resting in bed. Alert and able to answer questions. Incisional wound VAC is intact over the left hip with good seal. Her thigh and calf are soft. Femoral nerve function is intact. She can actively plantarflex and dorsiflex her ankle and her toes. - Labs CBC & Chem 7: 02/24/24 04:08 Labs: Abnormal Lab Results - Last 24 Hours (Table) 02/24/24 Range/Units 04:08 WBC 11.22 H (4.50-10.00) X 10*3/uL RBC 3.72 L (4.10-5.20) X 10*6/uL Hgb 10.4 L (12.0-15.0) g/dL Hct 32.2 L (37.2-46.3) % RDW 15.3 H (11.5-14.5) % Immature Gran # 0.05 H (0.00-0.04) X 10*3/uL Neutrophils # 8.48 H (1.80-7.70) X 10*3/uL Eosinophils # 0.01 L (0.04-0.35) X 10*3/uL Assessment and Plan Assessment: Postoperative day #2 status post left direct anterior total hip arthroplasty, doing well Plan: Continue treatment as outlined yesterday. According to physical therapy the patient would benefit from discharged to subacute rehab versus SNF. I agree with this. I discussed this with the patient and her . I understand that this would probably be best for her given her low functional status and being in a wheelchair before surgery. Arrangements will be made likely tomorrow.
--- NOTE | 2024-02-25 12:25 | P.PN ---
Subjective Progress Note Date: 02/25/24 78 year old F with PMH of HTN, HLD, Hypothyroid, GERD, Urinary urgency presents to [facility] for elective surgery. She underwent Left direct anterior total hip arthroplasty with Dr. Bey. [facility] consulted for medical management. 02/24 Patient was seen and examined. No acute events overnight. Urinating freely. No bowel movement not passing gas. She reports 9/10 pain in her L hip. CBC done yesterday shows WBC 11.2, RBC 3.72, Hg 10.4, Hct 32.2. General: non toxic, no distress, appears at stated age, obese Derm: no unusual rashes/lesions, warm Head: atraumatic, normocephalic, symmetric Eyes: EOMI, no lid lag, anicteric sclera ENT: Nose and ears atraumatic Neck: No cervical lymphadenopathy, trachea midline, supple Mouth: no lip lesion, mucus membranes moist Cardiovascular: Normal S1 S2. systolic murmur Lungs: Clear to auscultation bilaterally, no accessory muscle use Ext: no gross muscle atrophy, no contractures Neuro: no gross focal neuro deficits Psych: Alert, oriented, appropriate affect Based on my assessment of this patient, this patient meets a high complexity level of care. Leukocytosis: Likely reactive. No signs of active infection. Monitor fever profile. Acute blood loss anemia which is an expected result of surgery. HTN: BP 123/51. Amlodipine 5 mg PO QHS. HLD: Lipitor 40 mg PO QHS. Hypothyroid: Synthroid 125 mcg PO QD. GERD: Protonix 20 mg PO QD. Urinary urgency: Oxybutynin 10 mg PO QHS. CODE STATUS: FULL CODE DVT Prophylaxis: ASA BID GI Prophylaxis: Protonix Designated medical POA if patient is not able to make medical decisions for themselves: I have reviewed the following actuarial consultant notes: Ortho note. I have reviewed the results of the following tests: CBC I have ordered the following tests: I have discussed the care of this patient with the following independent historian: . RN I have independently interpreted the following test below: I have discussed the management of this patient with the following physician: Objective - Vital Signs Vital signs: Vital Signs Temp 98.7 F 02/25/24 07:04 Pulse 63 02/25/24 07:04 Resp 20 02/25/24 07:04 BP 123/51 02/25/24 07:04 Pulse Ox 91 L 02/25/24 07:04 FiO2 Intake & Output 02/24/24 02/25/24 02/25/24 18:59 06:59 18:59 Intake Total 1000 Balance 1000 Intake: Intake, IV Titration 1000 Amount Sodium Chloride 0.9% 1, 1000 000 ml @ 100 mls/hr IV . Q10H [facility] Rx#:[id number] Other: Voiding Method Bedpan Bedpan # Voids 1 - Labs CBC & Chem 7: 02/24/24 04:08
[2024-02-25] MEDS: hydrOXYzine pamoate 25 MG CAP PO PRN (14:45)
[2024-02-25 23:32] LABS: Glucose,Whole Blood 130 mg/dL (70-110)
--- NOTE | 2024-02-26 08:08 | P.PN ---
Subjective Progress Note Date: 02/26/24 Patient is doing relatively well this morning. No acute events per nursing. She was weak and was lowered to the ground yesterday. This morning she is complaining of isolated pain in her left hip. She has no other complaints. Objective - Vital Signs Vital signs: Vital Signs Temp 98.3 F 02/26/24 00:46 Pulse 65 02/26/24 00:46 Resp 16 02/26/24 05:56 BP 132/59 02/26/24 00:46 Pulse Ox 100 02/26/24 00:46 FiO2 Intake & Output 02/25/24 02/26/24 02/26/24 18:59 06:59 18:59 Output Total 600 Balance -600 Output: Urine 600 Uretheral (Chand) 600 Other: Voiding Method External Catheter # Voids 2 - Exam Was examined at bedside this morning. Patient was awake alert and able to answer questions. Patient was sitting up in bed eating breakfast. Incisional wound VAC is intact over the left hip with good seal. Her thigh and calf are soft. Femoral nerve function is intact. She can actively plantarflex and dorsiflex her ankle and her toes. Wound VAC associate theatre professor plugged in. - Labs CBC & Chem 7: 02/24/24 04:08 Labs: Abnormal Lab Results - Last 24 Hours (Table) 02/25/24 Range/Units 23:31 POC Glucose (mg/dL) 130 H (70-110) mg/dL Assessment and Plan Assessment: Postoperative day #3 status post left direct anterior total hip arthroplasty, doing well Plan: Continue treatment as outlined yesterday. According to physical therapy the patient would benefit from discharged to subacute rehab versus SNF. I understand that this would probably be best for her given her low functional status and being in a wheelchair before surgery. Arrangements will be made likely tomorrow. Follow discharge activity instructions. Ensure wound VAC has associate theatre professor. Patient may transfer to rehab from a orthopedic standpoint when cleared by medicine. Appreciate medical team for medical management. Sachin was used for this dictation, please excuse spelling errors.
[2024-02-26 08:30] LABS: Basophils # (A) 0.02 X 10*3/uL (0.00-0.10); Basophils % (A) 0.3 %; Eosinophils # (A) 0.14 X 10*3/uL (0.04-0.35); Eosinophils % (A) 1.8 %; HCT 25.7 % (37.2-46.3); HGB 8.3 g/dL (12.0-15.0); Lymphocytes # (A) 2.33 X 10*3/uL (0.90-5.00); Lymphocytes % (A) 30.2 %; MCH 28.2 pg (27.0-32.0); MCHC 32.3 g/dL (32.0-37.0); MCV 87.4 FL (80.0-97.0); Monocytes # (A) 0.74 X 10*3/uL (0.20-1.00); Monocytes % (A) 9.6 %; NRBC Per 100 WBC 0 X 10*3/uL (0.00-0.01); Neutrophils # (A) 4.44 X 10*3/uL (1.80-7.70); Neutrophils % (A) 57.6 %; Platelet Count 161 X 10*3/uL (140-440); RBC 2.94 X 10*6/uL (4.10-5.20); RDW 15.3 % (11.5-14.5); WBC 7.71 X 10*3/uL (4.50-10.00)
--- NOTE | 2024-02-26 12:00 | P.PN ---
Subjective Progress Note Date: 02/26/24 78 year old F with PMH of HTN, HLD, Hypothyroid, GERD, Urinary urgency presents to [facility] for elective surgery. She underwent Left direct anterior total hip arthroplasty with Dr. Bey. [facility] consulted for medical management. 02/25 Patient was seen and examined. No acute events overnight. Patient and understands it will be difficult to manage at home so requesting SNF. Had some urinary retention requiring straight cath, Flomax is ordered. She reports uncontrolled pain in her L hip. CBC today shows RBC 2.94, Hg 8.3, Hct 25.7. General: non toxic, no distress, appears at stated age, obese Derm: no unusual rashes/lesions, warm Eyes: EOMI, no lid lag, anicteric sclera Mouth: no lip lesion, mucus membranes moist Cardiovascular: Normal S1 S2. systolic murmur Lungs: Clear to auscultation bilaterally, no accessory muscle use Ext: no gross muscle atrophy, no contractures Neuro: no gross focal neuro deficits Psych: Alert, oriented, appropriate affect Based on my assessment of this patient, this patient meets a high complexity level of care. Acute blood loss anemia which is an expected result of surgery. Repeat CBC tomorrow. Urinary retention: Flomax 0.4 mg PO QD. Bladder scan PRN. Straight cath if needed. HTN: BP 124/54. Amlodipine 5 mg PO QHS. HLD: Lipitor 40 mg PO QHS. Hypothyroid: Synthroid 125 mcg PO QD. GERD: Protonix 20 mg PO QD. Resolved: Leukocytosis CODE STATUS: FULL CODE DVT Prophylaxis: ASA BID GI Prophylaxis: Protonix Designated medical POA if patient is not able to make medical decisions for themselves: . I have reviewed the following service delivery management consultant notes: Ortho note. I have reviewed the results of the following tests: CBC I have ordered the following tests: CBC in the AM. I have discussed the care of this patient with the following independent historian: . RN I have independently interpreted the following test below: I have discussed the management of this patient with the following physician: Objective - Vital Signs Vital signs: Vital Signs Temp 97.3 F L 02/26/24 08:00 Pulse 64 02/26/24 08:00 Resp 18 02/26/24 08:00 BP 124/54 02/26/24 08:00 Pulse Ox 95 02/26/24 08:00 FiO2 Intake & Output 02/25/24 02/26/24 02/26/24 18:59 06:59 18:59 Output Total 600 Balance -600 Output: Urine 600 Uretheral (Chand) 600 Other: Voiding Method External Catheter # Voids 2 - Labs CBC & Chem 7: 02/26/24 03:25 Labs: Abnormal Lab Results - Last 24 Hours (Table) 02/25/24 02/26/24 Range/Units 23:31 03:25 RBC 2.94 L (4.10-5.20) X 10*6/uL Hgb 8.3 L (12.0-15.0) g/dL Hct 25.7 L (37.2-46.3) % RDW 15.3 H (11.5-14.5) % POC Glucose (mg/dL) 130 H (70-110) mg/dL
[2024-02-26] MEDS: polyethylene glycoL 3350 17 GM POWD.PACK PO SCH (12:16)
[2024-02-26] MEDS: TAMSULOSIN 0.4 MG CAP.ER.24H PO SCH (12:16)
[2024-02-27 03:35] LABS: HCT 27.4 % (34.0-46.0); HGB 9.1 gm/dL (11.4-16.0); MCH 28.8 pg (25.0-35.0); MCHC 33.1 g/dL (31.0-37.0); MCV 87.1 fL (80.0-100.0); Mean Platelet Volume 8.1; Platelet Count 174 k/uL (150-450); RBC 3.14 m/uL (3.80-5.40); RDW 15.2 % (11.5-15.5)
[2024-02-27 08:40] VITALS: RESP 16
--- NOTE | 2024-02-27 09:01 | P.DS ---
Providers Date of admission: 02/26/24 08:56 Attending physician: Gustavo Bey Consults: 02/23/24 12:40 Consult Physician Routine Consulting Provider: Michael Physician Consult Reason/Comments: Postop medical management Do you want consulting provider notified?: Yes Primary care physician: Kian [facility] Course: Patient is a 79-year-old female with left hip osteoarthritis that failed conservative management and elected to proceed with a left total hip arthroplasty. On 02/23/2024 patient presented to preop for scheduled direct anterior left total hip arthroplasty with Dr. Bey. Patient tolerated the procedure well. Patient was transferred to the orthopedic floor. In the postoperative period patient had some urinary retention. Patient continued to have surgical pain. Patient and understands it will be difficult to manage at home so they have requested SNF. Was evaluated by physical therapy. Rehab was recommended. Patient was examined at bedside this morning. Patient has a wound VAC over the left anterior hip incision, it is clean, dry, intact with no leakage or drainage. The charging cord was plugged in. The patient's left femoral nerve function is grossly intact. The patient is able to plantarflex and dorsiflex their left ankles and toes. Their left foot is pink, warm, and capillary refill is under 2 seconds. Patient will be transferred to rehab. Patient is weightbearing as tolerated. Patient will follow-up in our office in 2 weeks. Leave wound VAC for 2 weeks postop. Assessment: Status post left total hip arthroplasty for left hip osteoarthritis on 02/23/[address] Bey Plan - Discharge Summary Discharge Rx Participant: No New Discharge Prescriptions: New Aspirin 81 mg PO BID #60 tab Doxycycline Monohydrate 100 mg PO BID #28 cap Omeprazole 20 mg PO DAILY #30 tab Docusate [Colace] 100 mg PO BID #60 capsule HYDROcodone/APAP 5-325MG [[place] 5] 1 - 2 each PO Q6HR PRN #48 tab PRN Reason: Pain Ondansetron [Zofran] 4 mg PO Q6HR PRN #30 tab PRN Reason: Nausea No Action Levothyroxine Sodium [Levoxyl] 125 mcg PO DAILY Atorvastatin Calcium [Lipitor] 40 mg PO HS Multivitamins, Thera [Multivitamin (formulary)] 1 tab PO HS Oxybutynin ER [Ditropan XL] 10 mg PO HS Furosemide [Lasix] 40 mg PO DAILY #30 tablet amLODIPine [Norvasc] 5 mg PO HS Meclizine [Antivert] 12.5 mg PO DAILY PRN PRN Reason: DIZZINESS Vitamin B Complex 1 each PO HS [place] Diet Pills 1 tab PO TID Acetaminophen Tab [Tylenol] 650 mg PO Q4HR PRN #0 tab PRN Reason: Fever And/ Or Mild Pain (1-3) Calcium Carbonate [Tums] 500 mg PO DAILY PRN PRN Reason: Heartburn Discharge Medication List Atorvastatin Calcium [Lipitor] 40 mg PO HS 03/24/14 [History] Levothyroxine Sodium [Levoxyl] 125 mcg PO DAILY 03/24/14 [History] Multivitamins, Thera [Multivitamin (formulary)] 1 tab PO HS 03/24/14 [History] Oxybutynin ER [Ditropan XL] 10 mg PO HS 07/02/17 [History] Furosemide [Lasix] 40 mg PO DAILY #30 tablet 07/04/17 [Rx] amLODIPine [Norvasc] 5 mg PO HS 09/24/20 [History] [place] Diet Pills 1 tab PO TID 07/27/23 [History] Meclizine [Antivert] 12.5 mg PO DAILY PRN 07/27/23 [History] Vitamin B Complex 1 each PO HS 07/27/23 [History] Acetaminophen Tab [Tylenol] 650 mg PO Q4HR PRN #0 tab 09/29/23 [Rx] Calcium Carbonate [Tums] 500 mg PO DAILY PRN 02/20/24 [History] Aspirin 81 mg PO BID #60 tab 02/23/24 [Rx] Docusate [Colace] 100 mg PO BID #60 capsule 02/23/24 [Rx] Doxycycline Monohydrate 100 mg PO BID #28 cap 02/23/24 [Rx] HYDROcodone/APAP 5-325MG [[place] 5] 1 - 2 each PO Q6HR PRN #48 tab 02/23/24 [Rx] Omeprazole 20 mg PO DAILY #30 tab 02/23/24 [Rx] Ondansetron [Zofran] 4 mg PO Q6HR PRN #30 tab 02/23/24 [Rx] Follow up Appointment(s)/Referral(s): [facility] Nurse, [NON-STAFF] - As Needed Gustavo Bey MD [Medical Doctor] - 2 Weeks Activity/Diet/Wound Care/Special Instructions: 1. Weight-bear as tolerated on your operative extremity unless instructed otherwise. Use a walker or other assistive device to ambulate. 2. Leave surgical dressing in place. If your dressing becomes saturated with blood, there is drainage, or the dressing becomes loose please contact the office. 3. It is okay to shower with your surgical dressing, but do not submerge in water (no hot tubs, bath's, swimming etc.) 4. Take your blood clot prevention medication as prescribed (aspirin, Eliquis, Xarelto, and Plavix are commonly prescribed medications for blood clot prevention) 5. While taking [place] or Percocet for pain take a stool softener (Ex: Colace) and drink lots of water. 6. Keep all follow-up appointments as scheduled. You will usually be seen in 1-2 weeks following surgery. 7. Please contact the office with any questions or concerns [phone] Discharge Disposition: TRANSFER TO SNF/ECF
--- NOTE | 2024-02-27 11:04 | P.PN ---
Subjective Progress Note Date: 02/27/24 Patient seen this morning. She denies any acute complaints. No other acute issues overnight. 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 Today hemoglobin is 9.1 which is trending up Urinary retention: Patient will be started on Flomax 0.4 mg p.o. daily Hypertension Continue with amlodipine 5 mg p.o. at bedtime Hyperlipidemia Continue with Synthroid 125 mcg p.o. daily GERD Continue Protonix 20 mg p.o. daily Leukocytosis Resolved Patient stable for discharge from medical standpoint. Medication reconciliation completed. Objective - Vital Signs Vital signs: Vital Signs Temp 97.8 F 02/27/24 07:07 Pulse 64 02/27/24 07:07 Resp 16 02/27/24 07:07 BP 105/58 02/27/24 07:07 Pulse Ox 96 02/27/24 07:07 FiO2 Intake & Output 02/26/24 02/27/24 02/27/24 18:59 06:59 18:59 Other: Voiding Method Bedside Commode # Voids 2 1 - Labs CBC & Chem 7: 02/27/24 03:17 Labs: Abnormal Lab Results - Last 24 Hours (Table) 02/27/24 Range/Units 03:17 RBC 3.14 L (3.80-5.40) m/uL Hgb 9.1 L (11.4-16.0) gm/dL Hct 27.4 L (34.0-46.0) %
[2024-02-27 15:07] VITALS: BP 110/53; PULSE 60; TEMP 98
== END 2024-02-27 16:21 ==
LOC: OR 05:42 → 4SSUR 14:24 → OR 02-26 08:56
PROVIDERS: ADMIT Orthopaedic Surgery; ATTEND Orthopaedic Surgery
DX: M16.12 Unilateral primary osteoarthritis, left hip (principal); R33.9 Retention of urine, unspecified; N99.89 Other postprocedural complications and disorders of genitourinary system; D62 Acute posthemorrhagic anemia; D72.829 Elevated white blood cell count, unspecified; M25.552 Pain in left hip; R53.1 Weakness; I35.0 Nonrheumatic aortic (valve) stenosis; E03.9 Hypothyroidism, unspecified; E78.5 Hyperlipidemia, unspecified; K21.9 Gastro-esophageal reflux disease without esophagitis; I10 Essential (primary) hypertension; N32.81 Overactive bladder; Z68.37 Body mass index [BMI] 37.0-37.9, adult; Z79.82 Long term (current) use of aspirin; Z79.899 Other long term (current) drug therapy; Z79.890 Hormone replacement therapy; Z88.5 Allergy status to narcotic agent; Z88.8 Allergy status to other drugs, medicaments and biological substances
CPT/HCPCS: 27130; 97116; 97162; 97166; 64999; 85025 ×2; 85027; 73501; G0378 ×2; C1776; C1713; J2250; J0171; J3370; J0330; J1100; J2710; J0690 ×2; J2405; J2003; J3010; J3490; J2795; J1885; J2704; J1171; J2371; J1596

== ENCOUNTER → 2024-05-13 | Outpatient (CLI) | payer MEDICARE ==
--- NOTE | 2024-05-13 10:36 | MM ---
Reason for Exam: Screening (asymptomatic). Last screening mammogram was performed 12 month(s) ago. Patient History: Menarche at age 15. First Full-Term at age 22. Left ovary removed at age 47. Hysterectomy at age 47. Postmenopausal. Risk Values: Kassie 5 year model risk: 1.6%. NCI Lifetime model risk: 3.0%. Prior Study Comparison: 04/22/2021 Bilateral Screening Mammogram, [facility]. 04/25/2022 Bilateral MG 3D screening mammo w/cad, [facility]. 05/10/2023 Bilateral MG 3D screening mammo w/cad, [facility]. Tissue Density: There are scattered areas of fibroglandular density. Findings: Analyzed By CAD. Right breast: There is no suspicious group of microcalcifications or new suspicious mass. Benign-appearing calcifications right breast. Left breast: There is no suspicious group of microcalcifications or new suspicious mass. Benign-appearing calcifications left breast. Overall Assessment: Benign, BI-RAD 2 Management: Screening Mammogram of both breasts in [address] [facility] will attempt to contact patient to return for supplemental views and ultrasound if indicated. Patient should continue monthly self-breast exams. A clinical breast exam by your physician is recommended on an annual basis. This exam should not preclude additional follow-up of suspicious palpable abnormalities. Note on Kassie scores and lifetime risk: 1. A Kassie score greater than 3% is considered moderate risk. If this is the case, consider specialist referral to assess eligibility for a risk reducing agent. 2. If overall lifetime risk for the development of breast cancer is 20% or higher, the patient may qualify for future screening with alternating mammogram and breast MRI. [facility], , 05/13/2024 10:33 AM. Electronically signed and approved by: Ildefonso Barrera DO
== END | disposition home or self-care (01) ==
LOC: RADMAMWWP 10:11
PROVIDERS: ATTEND Family Medicine
DX: Z12.31 Encounter for screening mammogram for malignant neoplasm of breast (principal); Z90.721 Acquired absence of ovaries, unilateral; Z78.0 Asymptomatic menopausal state; R92.323 Mammographic fibroglandular density, bilateral breasts
CPT/HCPCS: 77063; 77067